=== PATIENT | male | born 1990 | race Caucasian/White ===

== ENCOUNTER 2018-06-01 02:15 | Emergency (ER) | payer SELFPAY ==
[~2018-06-01 02:15] MED LIST: AGM875T PO; BSP10T PO; CYCL10TA9 PO; DVL500TEC PO; HYDR-3720 PO; NAPR-1071 PO; PRD20T PO; TRM50T PO; seroquel
== END 2018-06-01 03:00 | disposition left against medical advice (07) ==
LOC: EDUNIT# 02:15 → ER 02:16
DX: R30.0 Dysuria (principal)

== ENCOUNTER 2020-02-08 09:17 | Emergency (ER) | payer SELFPAY ==
[~2020-02-08] VITALS: Ht 177.8 cm; Wt 77.0 kg
[2020-02-08] MEDS ORDERED: LACTATED RINGERS 1,000 ML IV ONE (09:25)
--- NOTE | 2020-02-08 09:29 | ED Chest Pain ---
General Stated Complaint: METH ABUSE Source: patient, EMS Exam Limitations: no limitations History of Present Illness Date Seen by Provider: Feb 08, 2020 Time Seen by Provider: 09:18 Initial Comments The patient presents to ER by EMS from home with chief complaint that he shot of something that he thought was met but is not certain what it was and then he had a bout 20 minutes of gripping type chest pain in the center of his chest. He's had no fevers chills cough shortness of breath or exposures to any sick people that he is aware of. He is a frequent IV methamphetamine user as well as smokes cannabis. He does drink alcohol and had a liter of whiskey yesterday between him and some friends. He denies any other significant medical history except for hepatitis. He does not follow with a doctor routinely. He does not take any routine medicines. No known personal or family history of coronary disease. He doesn't have any injection sites that he thinks are infected. EMS gave him 2 mg of Ativan IV because he was very agitated when they arrived. The said that has made a significant effect. Allergies and Home Medications Allergies Coded Allergies: PETERANo Known Allergies (Unverified Allergy, Mild, 11/28/08) Home Medications Buspirone Hcl 10 Mg Tablet, 10 MG PO TID, (Reported) Cyclobenzaprine HCl 10 Mg Tablet, 10 MG PO Q8H PRN for SPASMS Prescribed by: STORMY RASHID on 06/15/152201 Naproxen 500 Mg Tablet, 500 MG PO BID Prescribed by: STORMY RASHID on 06/15/152201 Prednisone 20 Mg Tab, 40 MG PO DAILY Prescribed by: STORMY RASHID on 06/15/152201 Patient Home Medication List Home Medication List Reviewed: Yes Review of Systems Review of Systems Constitutional: No chills, No diaphoresis EENTM: No Blurred Vision, No Double Vision Respiratory: Denies Cough, Denies Shortness of Air Cardiovascular: Chest Pain; Denies Edema, Denies Irregular Heart Rate, Denies Lightheadedness Gastrointestinal: Denies Constipated, Denies Diarrhea, Denies Nausea Genitourinary: Denies Burning, Denies Discharge, Denies Drainage Musculoskeletal: No back pain, No joint pain Skin: No dryness, No pruritus, No rash Psychiatric/Neurological: Denies Headache, Denies Numbness All Other Systems Reviewed Negative Unless Noted: Yes Past Zvceesj-Uyrhfb-Gqwmib Hx Patient Social History Alcohol Use: Regular Use Alcohol Beverage of Choice: Whiskey Recreational Drug Use: Yes Drug of Choice: IV methamphetamines Smoking Status: Current Everyday Smoker Type Used: Cigarettes (one pack per day) Seasonal Allergies Seasonal Allergies: No Past Medical History Reproductive Disorders: No Anxiety Family Medical History No Pertinent Family Hx Physical Exam Vital Signs Vital Signs - First Documented 02/08/20 09:20 Temp 37.5 Pulse 96 Resp 20 B/P (MAP) 136/95 (109) Pulse Ox 99 O2 Delivery Room Air Capillary Refill : Height, Weight, BMI Height: 5'10" Weight: 189lbs. oz. 85.198130ho; BMI Method:Stated General Appearance: Anxious, Other (disheveled) HEENT: PERRL/EOMI, TMs Normal, Normal ENT Inspection, Pharynx Normal, Moist Mucous Membranes Neck: Full Range of Motion, Normal Inspection Respiratory: Lungs Clear, Normal Breath Sounds, No Accessory Muscle Use, No Respiratory Distress Cardiovascular: Regular Rate, Rhythm, No Edema, Normal Peripheral Pulses Gastrointestinal: Normal Bowel Sounds, Non Tender, Soft Neurologic/Psychiatric: Alert, Oriented x3, No Motor/Sensory Deficits Skin: Warm/Dry, Other (copious IV insertion sites on bilateral arms. None appear erythematous, indurated tender or infected.) Progress/Results/Core Measures Results/Orders Lab Results Laboratory Tests Test 02/08/20 09:30 02/08/20 09:44 02/08/20 12:03 Range/Units White Blood Count 8.5 4.3-11.0 10^3/uL Red Blood Count 4.30 L 4.35-5.85 10^6/uL Hemoglobin 13.0 L 13.3-17.7 G/DL Hematocrit 38 L 40-54 % Mean Corpuscular Volume 88 80-99 FL Mean Corpuscular Hemoglobin 30 25-34 PG Mean Corpuscular Hemoglobin Concent 34 32-36 G/DL Red Cell Distribution Width 13.4 10.0-14.5 % Platelet Count 217 130-400 10^3/uL Mean Platelet Volume 10.8 H 7.4-10.4 FL Neutrophils (%) (Auto) 66 42-75 % Lymphocytes (%) (Auto) 23 12-44 % Monocytes (%) (Auto) 8 0-12 % Eosinophils (%) (Auto) 3 0-10 % Basophils (%) (Auto) 1 0-10 % Neutrophils # (Auto) 5.6 1.8-7.8 X 10^3 Lymphocytes # (Auto) 2.0 1.0-4.0 X 10^3 Monocytes # (Auto) 0.7 0.0-1.0 X 10^3 Eosinophils # (Auto) 0.2 0.0-0.3 10^3/uL Basophils # (Auto) 0.0 0.0-0.1 10^3/uL Sodium Level 139 135-145 MMOL/L Potassium Level 4.0 3.6-5.0 MMOL/L Chloride Level 108 H 98-107 MMOL/L Carbon Dioxide Level 18 L 21-32 MMOL/L Anion Gap 13 5-14 MMOL/L Blood Urea Nitrogen 11 7-18 MG/DL Creatinine 0.97 0.60-1.30 MG/DL Estimat Glomerular Filtration Rate > 60 BUN/Creatinine Ratio 11 Glucose Level 112 H 70-105 MG/DL Calcium Level 8.9 8.5-10.1 MG/DL Corrected Calcium 9.0 8.5-10.1 MG/DL Total Bilirubin 0.3 0.1-1.0 MG/DL Aspartate Amino Transf (AST/SGOT) 31 5-34 U/L Alanine Aminotransferase (ALT/SGPT) 34 0-55 U/L Alkaline Phosphatase 86 40-136 U/L Total Creatine Kinase 203 H 30-200 U/L Troponin I < 0.028 < 0.028 <0.028 NG/ML Total Protein 6.7 6.4-8.2 GM/DL Albumin 3.9 3.2-4.5 GM/DL Salicylates Level < 5.0 L 5.0-20.0 MG/DL Acetaminophen Level < 10 L 10-30 UG/ML Serum Alcohol < 10 <10 MG/DL Urine Color YELLOW Urine Clarity CLEAR Urine pH 6.5 5-9 Urine Specific [place] 1.025 H 1.016-1.022 Urine Protein 1+ H NEGATIVE Urine Glucose (UA) NEGATIVE NEGATIVE Urine Ketones TRACE H NEGATIVE Urine Nitrite NEGATIVE NEGATIVE Urine Bilirubin NEGATIVE NEGATIVE Urine Urobilinogen 1.0 < = 1.0 MG/DL Urine Leukocyte Esterase NEGATIVE NEGATIVE Urine RBC (Auto) NEGATIVE NEGATIVE Urine RBC RARE /HPF Urine WBC NONE /HPF Urine Squamous Epithelial Cells RARE /HPF Urine Crystals NONE /LPF Urine Bacteria NEGATIVE /HPF Urine Casts NONE /LPF Urine Mucus SMALL H /LPF Urine Other FEW SPERM H /HPF Urine Culture Indicated NO Urine Opiates Screen NEGATIVE NEGATIVE Urine Oxycodone Screen NEGATIVE NEGATIVE Urine Methadone Screen NEGATIVE NEGATIVE Urine Propoxyphene Screen NEGATIVE NEGATIVE Urine Barbiturates Screen NEGATIVE NEGATIVE Ur Tricyclic Antidepressants Screen NEGATIVE NEGATIVE Urine Phencyclidine Screen NEGATIVE NEGATIVE Urine Amphetamines Screen POSITIVE H NEGATIVE Urine Methamphetamines Screen POSITIVE H NEGATIVE Urine Benzodiazepines Screen NEGATIVE NEGATIVE Urine Cocaine Screen NEGATIVE NEGATIVE Urine Cannabinoids Screen POSITIVE H NEGATIVE My Orders Orders - SHRUTHI MCCOY Ed Iv/Invasive Line Start (02/08/20 09:25) Lactated Ringers (Lr 1000 Ml Iv Solution (02/08/20:25) Ua Culture If Indicated (02/08/20:25) Cbc With Automated Diff (02/08/20:25) Comprehensive Metabolic Panel (02/08/20:25) Alcohol (02/08/20:25) Drug Screen Stat (Urine) (02/08/20:25) Acetaminophen (02/08/20:25) Salicylate (02/08/20:25) Ekg Tracing (02/08/20:25) Ed Iv/Invasive Line Start (02/08/20:25) Monitor-Rhythm Ecg Trace Only (02/08/20:25) Ed Iv/Invasive Line Start (02/08/20:25) Creatine Kinase (02/08/20:25) Troponin I (02/08/20 09:25) Aspirin Chewable Tablet (Baby Aspirin Ch (02/08/20 09:30) Lorazepam Injection (Ativan Injection) (02/08/20 09:30) Chest 1 View, Ap/Pa Only (02/08/20 09:48) Blood Culture (02/08/20 09:48) Troponin I (02/08/20 11:30) Medications Given in ED Current Medications Medications Dose Ordered Sig/Carson Route Start Time Stop Time Status Last Admin Dose Admin Aspirin 324 mg ONCE ONCE PO 02/08/20 09:30 02/08/20 09:31 DC 02/08/20 09:43 324 MG Lactated Ringer's 1,000 ml @ 0 mls/hr Q0M ONCE IV 02/08/20 09:25 02/08/20 09:28 DC 02/08/20 10:20 0 MLS/HR Lorazepam 1 mg ONCE ONCE IVP 02/08/20 09:30 02/08/20 09:31 DC 02/08/20 09:44 1 MG Vital Signs/I&O 02/08/20 09:20 Temp 37.5 Pulse 96 Resp 20 B/P (MAP) 136/95 (109) Pulse Ox 99 O2 Delivery Room Air Progress Progress Note #1: Time: 10:44 Progress Note Patient's chest pain was transient and gone by the time he arrived in the ER. He was still quite anxious on arrival so another milligram of Ativan IV was ordered. He is now calm, his CPK is unremarkable. We put 2 L of fluid on board. Blood cultures have been obtained. Patient was mildly tachycardic around 100 when he arrived. EKG obtained. No fever or other signs of sepsis. No source of infection identified yet. Planned to obtain a repeat temperature. He presented with 99.5 which was initially attributed to his agitation and methamphetamine use. He denies any subjective symptoms of fever or chills. Progress Note #2: Time: 10:58 Progress Note The patient's much more calm. He has talked with his family on the cell phone. After discussing the case with instrument engineer the patient is not in any acute distress and has aseptic vital signs. We will do a delta troponin and if it is still negative and let him follow-up in the cardiology clinic outpatient in the next week. Initial ECG Impression Date: Feb 08, 2020 Initial ECG Impression Time: 09:23 Initial ECG Rate: 99 Initial ECG Rhythm: Normal Sinus Initial ECG Intervals: QT (488) Initial ECG Impression: Normal, Nonspecific Changes Comment Sinus rhythm with borderline prolonged QT interval. Some PVCs. No clinically relevant ST T-wave elevation or depression. Diagnostic Imaging Diagonstic Imaging: Xray Plain Films/CT/US/NM/MRI: chest (1v) Comments NAME: KRISTY WHALEY MED REC#: [id number] PT STATUS: REG ER : 1990 PHYSICIAN: SHRUTHI MCCOY MD ADMIT DATE: 02/08/20/ER Draft Date of Exam:02/08/20 CHEST 1 VIEW, AP/PA ONLY INDICATION: Methamphetamine abuse Frontal chest obtained at 1031 a.m. and compared to 06/15/2015. Heart and mediastinal silhouette are normal in appearance. Lungs are clear. There is no pneumothorax or pleural fluid. IMPRESSION: Negative chest. Dictated on workstation # [id number] Dict: 02/08/20 1032 Trans: 02/08/20 1034 ROSAURA [id number] Interpreted by: COLE VIERA MD Electronically signed by: Reviewed: Reviewed by Me Consults : Consulting Physician: Alessia HAQUE MD Consults Notes Discussed the case with Dr. Haque and he says at the delta troponin is still negative we could let him follow-up in the clinic. Departure Impression Primary Impression: Chest pain Qualified Codes: R07.9 - Chest pain, unspecified Additional Impression: Methamphetamine dependence, continuous Disposition: 01 HOME, SELF-CARE Condition: Improved Departure-Patient Inst. Decision time for Depature: 12:42 Referrals: [facility]/Alessia GORMAN MD NO,LOCAL PHYSICIAN (PCP) Primary Care Physician Patient Instructions: Drug Abuse and Drug Addiction (DC) Add. Discharge Instructions: Call Dr. Haque's clinic and request a follow-up appointment this week to discuss what might have caused your chest pain. It could've been from a vasospasm from something that you injected or something else. Return to the ER promptly if you develop fevers especially above 102.5, intractable chest pain, shortness of air or other worrisome symptom. If you want help getting off of methamphetamines you should talk to the team at [facility]. They have an outpatient drug addiction treatment program and would be willing to meet you. SHRUTHI MCCOY Feb 08, 2020 09:29
[2020-02-08] MEDS ORDERED: ASPIRIN 81 MG CHEW (CHILDREN'S ASA) PO ONE (09:30)
[2020-02-08] MEDS ORDERED: LORazepam INJ 2 MG/ML (ATIVAN) VIAL IVP ONE (09:30)
[2020-02-08 09:41] LABS: BASOPHILS % (AUTO) 1 % (0-10); EOSINOPHILS # (AUTO) 0.2 10^3/uL (0.0-0.3); EOSINOPHILS % (AUTO) 3 % (0-10); HEMATOCRIT 38 % (40-54); LYMPHOCYTES % (AUTO) 23 % (12-44); MEAN CORPUSCULAR HEMOGLOBIN 30 PG (25-34); MEAN CORPUSCULAR HGB CONC 34 G/DL (32-36); MEAN CORPUSCULAR VOLUME 88 FL (80-99); MEAN PLATELET VOLUME 10.8 FL (7.4-10.4); MONOCYTES # (AUTO) 0.7 X 10^3 (0.0-1.0); MONOCYTES % (AUTO) 8 % (0-12); NEUTROPHILS # (AUTO) 5.6 X 10^3 (1.8-7.8); NEUTROPHILS % (AUTO) 66 % (42-75); PLATELET COUNT 217 10^3/uL (130-400); RED CELL DISTRIBUTION WIDTH 13.4 % (10.0-14.5); WHITE BLOOD COUNT 8.5 10^3/uL (4.3-11.0)
[2020-02-08 10:00] LABS: ALANINE AMINOTRANSFERASE 34 U/L (0-55); ALBUMIN 3.9 GM/DL (3.2-4.5); ALKALINE PHOSPHATASE 86 U/L (40-136); BILIRUBIN,TOTAL 0.3 MG/DL (0.1-1.0); BUN/CREATININE RATIO 11; CALCIUM 8.9 MG/DL (8.5-10.1); CARBON DIOXIDE 18 MMOL/L (21-32); CHLORIDE 108 MMOL/L (98-107); CREATINE KINASE 203 U/L (30-200); CREATININE SERUM 0.97 MG/DL (0.60-1.30); GFR ESTIMATED > 60; GLUCOSE 112 MG/DL (70-105); SALICYLATE < 5.0 MG/DL (5.0-20.0); SODIUM 139 MMOL/L (135-145); TOTAL PROTEIN 6.7 GM/DL (6.4-8.2)
--- NOTE | 2020-02-08 10:02 | NUR ---
AFTER VERBAL AGREEMENT BY PT, PT MOTHER, KARYN WHALEY, UPDATED ON PT CONDITION ET PENDING TESTS. KARYN VOICES NO OTHER QUESTIONS OR CONERNS.
[2020-02-08 10:06] LABS: ACETAMINOPHEN < 10 UG/ML (10-30)
--- NOTE | 2020-02-08 10:15 | NUR ---
IV NS BOLUS INITIATED BY [facility] LENS GENERATING MACHINE TENDER, COMPLETE. 1000ML INTAKE.
[2020-02-08 10:26] LABS: BILIRUBIN,URINE NEGATIVE (NEGATIVE); CLARITY,URINE CLEAR; COLOR,URINE YELLOW; GLUCOSE, URINE (UA) NEGATIVE (NEGATIVE); KETONES,URINE TRACE (NEGATIVE); LEUKOCYTE ESTERASE ,URINE NEGATIVE (NEGATIVE); NITRITE,URINE NEGATIVE (NEGATIVE); PH,URINE 6.5 (5-9); PROTEIN,URINE 1+ (NEGATIVE)
--- NOTE | 2020-02-08 10:34 | Diagnostic Imaging Report ---
INDICATION: Methamphetamine abuse Frontal chest obtained at 1031 a.m. and compared to 06/15/2015. Heart and mediastinal silhouette are normal in appearance. Lungs are clear. There is no pneumothorax or pleural fluid. IMPRESSION: Negative chest. Dictated by: Dictated on workstation # [id number]
[2020-02-08 10:41] LABS: BACTERIA,URINE NEGATIVE /HPF; RBC,URINE RARE /HPF; SQUAMOUS EPITHELIAL CELL,UR RARE /HPF
[2020-02-08 10:42] LABS: URINE OTHER FEW SPERM /HPF
[2020-02-08 10:51] LABS: AMPHETAMINE SCREEN, URINE POSITIVE (NEGATIVE); BARBITURATE SCREEN URINE NEGATIVE (NEGATIVE); BENZODIAZEPINES SCREEN URINE NEGATIVE (NEGATIVE); CANNABINOID SCREEN, URINE POSITIVE (NEGATIVE); COCAINE SCREEN URINE NEGATIVE (NEGATIVE); METHADONE STAT NEGATIVE (NEGATIVE); METHAMPHETAMINE SCREEN URINE S POSITIVE (NEGATIVE); OPIATE SCREEN URINE NEGATIVE (NEGATIVE); OXYCODONE STAT NEGATIVE (NEGATIVE); PROPOXYPHENE STAT NEGATIVE (NEGATIVE); TRICYCLIC ANTIDEPRESSANTS SCRE NEGATIVE (NEGATIVE)
[2020-02-08 12:50] VITALS: BP 149/73
== END 2020-02-08 12:51 | disposition home or self-care (01) ==
LOC: EDUNIT# 09:17 → ER 09:19
DX: R07.89 Other chest pain (principal); F15.20 Other stimulant dependence, uncomplicated; F41.9 Anxiety disorder, unspecified; F17.210 Nicotine dependence, cigarettes, uncomplicated; Z79.52 Long term (current) use of systemic steroids
CPT/HCPCS: 71045; 80053; 80306; 81000; 82550; 84484; 85025; 87040; 93005; 93041; 99284; G0480 ×3; 36415; 80320; 80329

== ENCOUNTER 2020-04-18 08:54 | Emergency (ER) | payer SELFPAY ==
[~2020-04-18] VITALS: Ht 167.4 cm; Wt 74.5 kg
[2020-04-18] MEDS ORDERED: LACTATED RINGERS 1,000 ML IV ONE (09:04)
[2020-04-18] MEDS ORDERED: FAMOTIDINE 20MG/2ML IV (PEPCID) IV STA (09:04)
[2020-04-18 09:15] LABS: BASOPHILS % (AUTO) 0 % (0-10); EOSINOPHILS # (AUTO) 0.2 10^3/uL (0.0-0.3); EOSINOPHILS % (AUTO) 2 % (0-10); HEMATOCRIT 44 % (40-54); HEMOGLOBIN 14.7 G/DL (13.3-17.7); LYMPHOCYTES # (AUTO) 1.7 X 10^3 (1.0-4.0); LYMPHOCYTES % (AUTO) 14 % (12-44); MEAN CORPUSCULAR HEMOGLOBIN 30 PG (25-34); MEAN CORPUSCULAR HGB CONC 34 G/DL (32-36); MEAN CORPUSCULAR VOLUME 91 FL (80-99); MEAN PLATELET VOLUME 10.8 FL (7.4-10.4); MONOCYTES # (AUTO) 0.7 X 10^3 (0.0-1.0); MONOCYTES % (AUTO) 6 % (0-12); NEUTROPHILS # (AUTO) 9.2 X 10^3 (1.8-7.8); NEUTROPHILS % (AUTO) 78 % (42-75); PLATELET COUNT 231 10^3/uL (130-400); RED CELL DISTRIBUTION WIDTH 13.7 % (10.0-14.5); WHITE BLOOD COUNT 11.8 10^3/uL (4.3-11.0)
[2020-04-18] MEDS ORDERED: LIDOCAINE 2% VISCOUS 15 ML UDC PO ONE (09:15)
[2020-04-18] MEDS ORDERED: ASPIRIN 81 MG CHEW (CHILDREN'S ASA) PO ONE (09:15)
[2020-04-18] MEDS ORDERED: ANTACID SUSP 30 ML UDC (MYLANTA) PO ONE (09:15)
[2020-04-18] MEDS ORDERED: LORazepam INJ 2 MG/ML (ATIVAN) VIAL IVP ONE (09:15)
--- NOTE | 2020-04-18 09:16 | ED Chest Pain ---
General Stated Complaint: CHEST TIGHTNESS Source: patient Exam Limitations: no limitations History of Present Illness Date Seen by Provider: Apr 18, 2020 Time Seen by Provider: 08:51 Initial Comments The patient resents to ER by private conveyance from home with chief complaint that he started having some chest pain since 7:00 this morning, 2 hours prior to arrival. He says he used methamphetamine yesterday. For the past year he's having intermittent chest pains like this is not always associated with his use of methadone amphetamines. He does not use other stimulants. He does use cannabis and smokes cigarettes and occasionally drinks. He was post to follow-up with cardiology of for the last time he presented to the ER with this symptom but they required him to have an ID and he does not have one so he never made an appointment. The patient says his father had his first heart attack and stent at age 40. He does not follow with a primary care doctor and have any other known medical history. He says the pain is sharp stabbing in his left chest reading to his left shoulder. He is not short of breath having cough fever chills nausea vomiting sweats diarrhea. He says last time he came to the ER for this they gave him a shot of something for his pain and let him follow-up outpatient. Allergies and Home Medications Allergies Coded Allergies: NKANo Known Allergies (Unverified Allergy, Mild, 11/28/08) Home Medications Buspirone Hcl 10 Mg Tablet, 10 MG PO TID, (Reported) Cyclobenzaprine HCl 10 Mg Tablet, 10 MG PO Q8H PRN for SPASMS Prescribed by: STORMY RASHID on 06/15/152201 Naproxen 500 Mg Tablet, 500 MG PO BID Prescribed by: STORMY RASHID on 06/15/152201 Prednisone 20 Mg Tab, 40 MG PO DAILY Prescribed by: STORMY RASHID on 06/15/152201 Patient Home Medication List Home Medication List Reviewed: Yes Review of Systems Review of Systems Constitutional: No chills, No diaphoresis EENTM: No Blurred Vision, No Double Vision Respiratory: Denies Cough, Denies Shortness of Air, Denies SOA With Exertion Cardiovascular: See HPI, Chest Pain; Denies Edema, Denies Lightheadedness, Denies Palpitations, Denies Syncope Gastrointestinal: Denies Abdomen Distended, Denies Abdominal Pain, Denies Constipated, Denies Diarrhea, Denies Nausea Genitourinary: Denies Burning, Denies Discharge Musculoskeletal: No back pain, No gout, No joint pain Skin: No pruritus, No rash Psychiatric/Neurological: Denies Headache, Denies Numbness All Other Systems Reviewed Negative Unless Noted: Yes Past Wtpfbiz-Orxswg-Jlbtuq Hx Patient Social History Alcohol Use: Denies Use Alcohol Beverage of Choice: Whiskey Recreational Drug Use: Yes Drug of Choice: IV methamphetamines Smoking Status: Current Everyday Smoker Type Used: Cigarettes 2nd Hand Smoke Exposure: Yes Recent Foreign Travel: No Contact w/Someone Who Travel: No Recent Hopitalizations: No Seasonal Allergies Seasonal Allergies: No Past Medical History Surgeries: Yes (jaw) Respiratory: No Cardiac: No Neurological: No Reproductive Disorders: No Gastrointestinal: No Musculoskeletal: No Endocrine: No HEENT: No Cancer: No Psychosocial: Yes Anxiety Integumentary: No Blood Disorders: No (HEP C+) Family Medical History No Pertinent Family Hx Physical Exam Vital Signs Vital Signs - First Documented 04/18/20 08:57 Temp 36.7 Pulse 105 Resp 18 B/P (MAP) 177/100 (125) Pulse Ox 98 O2 Delivery Room Air Capillary Refill : Height, Weight, BMI Height: 5'10" Weight: 189lbs. oz. 85.464974lr; 24.00 BMI Method:Stated General Appearance: Anxious, Moderate Distress HEENT: PERRL/EOMI, Pharynx Normal, Moist Mucous Membranes Neck: Full Range of Motion, Normal Inspection Respiratory: Lungs Clear, Normal Breath Sounds, No Accessory Muscle Use, No Respiratory Distress Cardiovascular: Regular Rate, Rhythm, No Edema, Normal Peripheral Pulses, Tachycardia Gastrointestinal: Normal Bowel Sounds, Non Tender, Soft Extremity: Normal Capillary Refill, Normal Inspection, Normal Range of Motion, Non Tender Neurologic/Psychiatric: Alert, Oriented x3, No Motor/Sensory Deficits Skin: Normal Color, Warm/Dry Progress/Results/Core Measures Results/Orders Lab Results Laboratory Tests Test 04/18/20 09:08 04/18/20 10:57 Range/Units White Blood Count 11.8 H 4.3-11.0 10^3/uL Red Blood Count 4.84 4.35-5.85 10^6/uL Hemoglobin 14.7 13.3-17.7 G/DL Hematocrit 44 40-54 % Mean Corpuscular Volume 91 80-99 FL Mean Corpuscular Hemoglobin 30 25-34 PG Mean Corpuscular Hemoglobin Concent 34 32-36 G/DL Red Cell Distribution Width 13.7 10.0-14.5 % Platelet Count 231 130-400 10^3/uL Mean Platelet Volume 10.8 H 7.4-10.4 FL Neutrophils (%) (Auto) 78 H 42-75 % Lymphocytes (%) (Auto) 14 12-44 % Monocytes (%) (Auto) 6 0-12 % Eosinophils (%) (Auto) 2 0-10 % Basophils (%) (Auto) 0 0-10 % Neutrophils # (Auto) 9.2 H 1.8-7.8 X 10^3 Lymphocytes # (Auto) 1.7 1.0-4.0 X 10^3 Monocytes # (Auto) 0.7 0.0-1.0 X 10^3 Eosinophils # (Auto) 0.2 0.0-0.3 10^3/uL Basophils # (Auto) 0.0 0.0-0.1 10^3/uL Prothrombin Time 12.7 12.2-14.7 SEC INR Comment 0.9 0.8-1.4 Activated Partial Thromboplast Time 26 24-35 SEC Sodium Level 137 135-145 MMOL/L Potassium Level 3.8 3.6-5.0 MMOL/L Chloride Level 102 98-107 MMOL/L Carbon Dioxide Level 23 21-32 MMOL/L Anion Gap 12 5-14 MMOL/L Blood Urea Nitrogen 14 7-18 MG/DL Creatinine 0.93 0.60-1.30 MG/DL Estimat Glomerular Filtration Rate > 60 BUN/Creatinine Ratio 15 Glucose Level 132 H 70-105 MG/DL Calcium Level 9.2 8.5-10.1 MG/DL Corrected Calcium 8.9 8.5-10.1 MG/DL Magnesium Level 1.7 1.6-2.4 MG/DL Total Bilirubin 0.4 0.1-1.0 MG/DL Aspartate Amino Transf (AST/SGOT) 31 5-34 U/L Alanine Aminotransferase (ALT/SGPT) 74 H 0-55 U/L Alkaline Phosphatase 100 40-136 U/L Myoglobin 20.5 10.0-92.0 NG/ML Troponin I < 0.028 < 0.028 <0.028 NG/ML Total Protein 7.7 6.4-8.2 GM/DL Albumin 4.4 3.2-4.5 GM/DL My Orders Orders - SHRUTHI MCCOY Continuous Ekg Monitoring (04/18/20 08:57) Ekg Tracing (04/18/20 08:57) Ed Iv/Invasive Line Start (04/18/20 09:04) Lactated Ringers (Lr 1000 Ml Iv Solution (04/18/20 09:04) Cbc With Automated Diff (04/18/20 09:04) Magnesium (04/18/20 09:04) Chest 1 View, Ap/Pa Only (04/18/20 09:04) Comprehensive Metabolic Panel (04/18/20 09:04) Myoglobin Serum (04/18/20 09:04) Protime With Inr (04/18/20 09:04) Partial Thromboplastin Time (04/18/20 09:04) O2 (04/18/20 09:04) Lipid Panel (04/19/20 06:00) Ed Iv/Invasive Line Start (04/18/20 09:04) Troponin I (04/18/20 09:04) Aspirin Chewable Tablet (Baby Aspirin Ch (04/18/20 09:15) Lorazepam Injection (Ativan Injection) (04/18/20 09:15) Lidocaine 2% Viscous 15 Ml (Xylocaine Vi (04/18/20 09:15) Antacid Suspension (Mylanta Suspension (04/18/20 09:15) Famotidine Injection (Pepcid Injection) (04/18/20 09:04) Troponin I (04/18/20 11:03) Medications Given in ED Current Medications Medications Dose Ordered Sig/Carson Route Start Time Stop Time Status Last Admin Dose Admin Al Hydrox/Mg Hydrox/Simethicone 30 ml ONCE ONCE PO 04/18/20 09:15 04/18/20 09:16 DC 04/18/20 09:19 30 ML Aspirin 324 mg ONCE ONCE PO 04/18/20 09:15 04/18/20 09:16 DC 04/18/20 09:19 324 MG Lactated Ringer's 1,000 ml @ 0 mls/hr Q0M ONCE IV 04/18/20 09:04 04/18/20 09:07 DC 8/24/20 09:23 1,000 MLS/HR Lidocaine HCl 15 ml ONCE ONCE PO 04/18/20 09:15 04/18/20 09:16 DC 04/18/20 09:19 15 ML Lorazepam 2 mg ONCE ONCE IVP 04/18/20 09:15 04/18/20 09:16 DC 04/18/20 09:21 2 MG Vital Signs/I&O 04/18/20 08:57 Temp 36.7 Pulse 105 Resp 18 B/P (MAP) 177/100 (125) Pulse Ox 98 O2 Delivery Room Air Progress Progress Note #1: Time: 09:16 Progress Note Initial EKG is okay. He could be having a type do an STEMI related to stimulant use. He also be having musculoskeletal pain as it is reproducible to direct palpation of his chest. We'll give him a GI cocktail to help us decide whether gastritis or esophagitis is part of the problem. We will also give him 2 mg Ativan as she is tachycardic, anxious and a liter of fluids. Progress Note #2: Time: 11:02 Progress Note the patient expressed significant improvement from the GI cocktail. His initial troponin is negative which was collected 2 hours after the initiation of his pain. It is now 4 hours after his pain started and has resolved. If a delta troponin is negative were going to allow him to go home and strongly encouraged to follow up with cardiology. He says hd can help him get an ID. We havcouraged him also to start taking omeprazole and if the baker bread workup is completed he should follow-up with a doctor to discuss his stomach issues. We also encouraged him to discontinue smoking and stop using methamphetamines. The patient is pre-contemplative at this time. We did encourage him to follow [facility] with [facility] as they do have some capability for outpatient drug and alcohol addiction treatment if he changes his mind and the patient acknowledges this. Initial ECG Impression Date: Apr 18, 2020 Initial ECG Impression Time: 09:00 Initial ECG Rate: 100 Initial ECG Rhythm: S.Tach Initial ECG Intervals: Normal Initial ECG Impression: Normal, Nonspecific Changes Initial ECG Comparisson: Unchanged Comment Sinus tachycardia with no clinically relevant ST elevation or depression. PVC seen. Diagnostic Imaging Diagonstic Imaging: Xray Plain Films/CT/US/NM/MRI: chest Comments NAME: KRISTY WHALEY [facility] REC#: [id number] PT STATUS: REG ER : 1990 PHYSICIAN: SHRUTHI MCCOY MD ADMIT DATE: 04/18/20/ER Draft Date of Exam:04/18/20 CHEST 1 VIEW, AP/PA ONLY INDICATION: Chest pain and tightness. Frontal chest obtained at 9:27 a.m. is compared to 02/08/2020. Heart and mediastinal silhouette are normal in appearance. The lungs are clear. There is no pneumothorax or pleural fluid. IMPRESSION: Negative chest. Dictated on workstation # [id number] Dict: 04/18/20 0950 Trans: 04/18/20 0951 [id number] [id number] Interpreted by: COLE VIERA MD Electronically signed by: Reviewed: Reviewed by Me Departure Impression Primary Impression: Chest wall pain Additional Impression: Gastroesophageal reflux disease Qualified Codes: K21.9 - Gastro-esophageal reflux disease without esophagitis Disposition: HOME, SELF-CARE Condition: Stable Departure-Patient Inst. Decision time for Depature: 12:09 Referrals: JARON ALVARADO MD FACP FACC [facility] NO,LOCAL PHYSICIAN (PCP) Primary Care Physician Patient Instructions: Chest Pain (DC) Add. Discharge Instructions: I suspect that some your chest pain may be caused by a GERD or indigestion however with her use of methamphetamines, history of smoking and history of early-onset family heart diseaseyou have significant risk factors and I recommend you follow-up with the baker bread in the clinic. Please call Dr. Alvarado, cardiology and make an appointment within the next week or 2 for follow-up. Start taking omeprazole/Prilosec 40 mg daily for the next 30 days. Start taking the Carafate 30 minutes prior to meals and at bedtime for a total of 4 times a day. Do this for the next 2 weeks. you can try Rolaids, Tums, Maalox etc. for pain. If this does not help and your pain persists then please return to the nearest ER promptly. Scripts Sucralfate (Carafate) 1 Gm Tablet 1 GM PO QIDACHS for 14 Days, #56 TAB 0 Refills Prov: SHRUTHI MCCOY 04/18/20 Omeprazole (Omeprazole) 40 Mg Capsule. 40 MG PO DAILY for 30 Days, #30 CAP 0 Refills Prov: SHRUTHI MCCOY 04/18/20 SHRUTHI MCCOY Apr 18, 2020 09:16
[2020-04-18 09:32] LABS: INR 0.9 (0.8-1.4); PROTHROMBIN TIME PATIENT 12.7 SEC (12.2-14.7)
[2020-04-18 09:50] LABS: ALANINE AMINOTRANSFERASE 74 U/L (0-55); ALBUMIN 4.4 GM/DL (3.2-4.5); ALKALINE PHOSPHATASE 100 U/L (40-136); BILIRUBIN,TOTAL 0.4 MG/DL (0.1-1.0); BUN/CREATININE RATIO 15; CALCIUM 9.2 MG/DL (8.5-10.1); CARBON DIOXIDE 23 MMOL/L (21-32); CHLORIDE 102 MMOL/L (98-107); CREATININE SERUM 0.93 MG/DL (0.60-1.30); GFR ESTIMATED > 60; GLUCOSE 132 MG/DL (70-105); MAGNESIUM 1.7 MG/DL (1.6-2.4); POTASSIUM 3.8 MMOL/L (3.6-5.0); SODIUM 137 MMOL/L (135-145); TOTAL PROTEIN 7.7 GM/DL (6.4-8.2)
--- NOTE | 2020-04-18 09:52 | Diagnostic Imaging Report ---
INDICATION: Chest pain and tightness. Frontal chest obtained at 9:27 a.m. is compared to 02/08/2020. Heart and mediastinal silhouette are normal in appearance. The lungs are clear. There is no pneumothorax or pleural fluid. IMPRESSION: Negative chest. Dictated by: Dictated on workstation # [id number]
--- NOTE | 2020-04-18 10:00 | NUR ---
FEELING BETTER. FLUIDS INFUSING.
[2020-04-18] MEDS ORDERED: SUCR1TAB36 PO (12:12)
[2020-04-18] MEDS ORDERED: OMEP40CA27 PO (12:12)
[2020-04-18 12:21] VITALS: BP 125/81
== END 2020-04-18 12:19 | disposition home or self-care (01) ==
LOC: EDUNIT# 08:54 → ER 08:55
DX: R07.89 Other chest pain (principal); K21.9 Gastro-esophageal reflux disease without esophagitis; F41.9 Anxiety disorder, unspecified; F17.210 Nicotine dependence, cigarettes, uncomplicated; Z79.52 Long term (current) use of systemic steroids
CPT/HCPCS: 36415; 71045; 80053; 83735; 83874; 84484; 85025; 85610; 85730; 93005

== ENCOUNTER 2020-05-04 15:04 | Emergency (ER) | payer SELFPAY ==
[~2020-05-04] VITALS: Ht 160 cm; Wt 72.7 kg
[~2020-05-04 15:04] MED LIST changes: +OMEP40CA27 PO; +SUCR1TAB36 PO
[2020-05-04 15:13] VITALS: BP 143/90
[2020-05-04] MEDS ORDERED: cefTRIAXone 1,000 MG/2.86 ml vial (IM ONLY) IM SCH (15:45)
[2020-05-04] MEDS ORDERED: LIDOCAINE 1% INJ 20 ML 20 ML VIAL INJ ONE (15:45)
[2020-05-04] MEDS ORDERED: AMOX-358 PO (15:47)
--- NOTE | 2020-05-04 15:47 | ED General ---
General Chief Complaint: General Problems/Pain Stated Complaint: FACIAL SWELLING;FACIAL PAIN Nursing Triage Note: AMBA TO ED C/O SWELLING TO R SIDE OF FACE AND SWELLING UNDER R EYE FOR SEVERAL DAYS. Nursing Sepsis Screen: No Definite Risk Source of Information: Patient Exam Limitations: No Limitations History of Present Illness Date Seen by Provider: May 04, 2020 Time Seen by Provider: 15:42 Initial Comments 29-year-old male who presents to the emergency room with complaints of right upper dental pain, facial swelling that extends down to the right eye for the past several days. Patient has numerous caries and fractured teeth. He reports that he gets abscesses from time to time. He denies fever or drainage into the oral cavity. Timing/Duration: 1 Week Associated Systoms: No Fever/Chills Allergies and Home Medications Allergies Coded Allergies: NKANo Known Allergies (Unverified Allergy, Mild, 11/28/08) Home Medications Buspirone Hcl 10 Mg Tablet, 10 MG PO TID, (Reported) Cyclobenzaprine HCl 10 Mg Tablet, 10 MG PO Q8H PRN for SPASMS Prescribed by: STORMY RASHID on 06/15/152201 Naproxen 500 Mg Tablet, 500 MG PO BID Prescribed by: STORMY RASHID on 06/15/152201 Omeprazole 40 Mg Capsule.dr, 40 MG PO DAILY Prescribed by: SHRUTHI MCCOY on 04/18/201211 Prednisone 20 Mg Tab, 40 MG PO DAILY Prescribed by: STORMY RASHID on 06/15/152201 Sucralfate 1 Gm Tablet, 1 GM PO QIDACHS Prescribed by: SHRUTHI MCCOY on 04/18/201211 Patient Home Medication List Home Medication List Reviewed: Yes Review of Systems Review of Systems Constitutional: see HPI; No chills, No fever EENTM: see HPI, mouth pain, mouth swelling, other (right upper cheek swelling that extends to the lower lid of the right eye) All Other Systems Reviewed Negative Unless Noted: Yes Past Zvqwoqm-Hlpwqu-Kpmuxd Hx Past Med/Social Hx: Reviewed Nursing Past Med/Soc Hx Patient Social History Alcohol Use: Denies Use Number of Drinks Today: GG Alcohol Beverage of Choice: Whiskey Recreational Drug Use: Yes (THC IV METHAMPHETAMINES ) Drug of Choice: IV methamphetamines Smoking Status: Current Everyday Smoker Type Used: Cigarettes 2nd Hand Smoke Exposure: Yes Recent Foreign Travel: No Contact w/Someone Who Travel: No Recent Infectious Disease Expo: No Recent Hopitalizations: No Seasonal Allergies Seasonal Allergies: No Past Medical History Surgeries: Yes (jaw) Respiratory: No Cardiac: No Neurological: No Reproductive Disorders: No Gastrointestinal: No Musculoskeletal: No Endocrine: No HEENT: No Cancer: No Psychosocial: Yes Anxiety Integumentary: No Blood Disorders: No (HEP C+) Family Medical History Reviewed Nursing Family Hx No Pertinent Family Hx Physical Exam Vital Signs Vital Signs - First Documented 05/04/20 15:13 Temp 37.0 Pulse 76 Resp 18 B/P (MAP) 143/90 (107) Pulse Ox 99 Capillary Refill : Less Than 3 Seconds Height, Weight, BMI Height: 5'10" Weight: 189lbs. oz. 85.029980ho; 28.00 BMI Method:Stated General Appearance: No Apparent Distress, WD/WN Eyes: Bilateral Eye Normal Inspection, Bilateral Eye PERRL, Bilateral Eye EOMI, Bilateral Eye Other (right lower lid swelling) HEENT: PERRL/EOMI, TMs Normal, Normal ENT Inspection, Pharynx Normal, Other (numerous dental caries and fractured teeth. No area of drainage or fistula noted.) Respiratory: Chest Non Tender, Lungs Clear, Normal Breath Sounds, No Accessory Muscle Use, No Respiratory Distress Cardiovascular: Regular Rate, Rhythm, No Edema, No Gallop, No JVD, No Murmur, Normal Peripheral Pulses Neurologic/Psychiatric: Alert, Oriented x3, Normal Mood/Affect Skin: Normal Color, Warm/Dry Progress/Results/Core Measures Suspected Sepsis Recent Fever Within 48 Hours: No Infection Criteria Present: None New/Unexplained Altered Menta: No Sepsis Screen: No Definite Risk SIRS Temperature: Pulse: 76 Respiratory Rate: 18 Blood Pressure 143 /90 Mean: 107 Results/Orders Vital Signs/I&O 05/04/20 15:13 Temp 37.0 Pulse 76 Resp 18 B/P (MAP) 143/90 (107) Pulse Ox 99 Capillary Refill : Less Than 3 Seconds Blood Pressure Mean: 107 Departure Impression Primary Impression: Dental infection Disposition: 01 HOME, SELF-CARE Condition: Stable/Unchanged Departure-Patient Inst. Decision time for Depature: 15:46 Referrals: YAZAN FOX,LOCAL PHYSICIAN (PCP) Primary Care Physician Patient Instructions: Tooth Abscess (DC) Add. Discharge Instructions: Take medications as directed. Follow-up with your primary care provider of your choosing within 1 week. You also need to follow-up with a dental clinic of your choosing. You may use ibuprofen and Tylenol as needed for pain relief. All discharge instructions reviewed with patient and/or family. Voiced understanding. Scripts Amoxicillin/Potassium Clav (Augmentin 875-125 Tablet) 1 Each Tablet 1 EACH PO BID for 10 Days, #20 TAB 0 Refills Prov: ABEBA THEODORE 05/04/20 ABEBA THEODORE May 04, 2020 15:47
== END 2020-05-04 16:20 | disposition home or self-care (01) ==
LOC: EDUNIT# 15:04 → ER 15:06
DX: K04.7 Periapical abscess without sinus (principal); F17.210 Nicotine dependence, cigarettes, uncomplicated; F41.9 Anxiety disorder, unspecified; Z79.52 Long term (current) use of systemic steroids
CPT/HCPCS: 99284

== ENCOUNTER 2020-11-22 21:57 | Emergency (ER) | payer SELFPAY ==
[~2020-11-22 21:57] MED LIST changes: +AMOX-358 PO
== END 2020-11-22 23:07 | disposition left against medical advice (07) ==
LOC: EDUNIT# 21:57 → ER 21:58
DX: F15.90 Other stimulant use, unspecified, uncomplicated (principal)

== ENCOUNTER 2021-01-14 03:56 | Emergency (ER) | payer SELFPAY ==
[~2021-01-14] VITALS: Ht 177.8 cm; Wt 76.2 kg
[2021-01-14] MEDS ORDERED: ASPIRIN 81 MG CHEW (CHILDREN'S ASA) PO ONE (04:30)
[2021-01-14] MEDS ORDERED: LACTATED RINGERS 1,000 ML IV ONE (04:30)
--- NOTE | 2021-01-14 04:36 | ED Chest Pain ---
General Stated Complaint: HEART PALPITATIONS,SMOKED SUBSTANCE DOESN'T FEEL R Source: patient Exam Limitations: no limitations (HEATHER MORAN STUDENT) History of Present Illness Date Seen by Provider: January 14, 2021 Time Seen by Provider: 04:15 Initial Comments Pt presents to ED via private conveyance with complaints of chest pressure and lightheadedness. He states it began about an hour before arriving after he smoked methamphetamine, and complains of 3/10 pain/pressure to his mid-left anterior chest. He experienced a similar episode 3-4mos ago, again after smoking methamphetamine. He states that he is currently a daily meth smoker. He has a significant family history of cardiac disease, with his father passing at age 46 from [place]. He denies history of diabetes, high blood pressure, hyperlipidemia. He takes Buspirone and Zyprexa. He also complains of lightheadedness, but denies N/V and abd pain. Timing/Duration: 1-3 hours Severity/Quality: moderate, pressure Location: central Activities at Onset: other (smoking methamphetamine) Prior CP/Workup: other (prior incident of similar nature 3-4mos ago) Associated Symptoms: No abdominal pain, No fever/chills, No headache, No nausea/vomiting, No shortness of breath (HEATHER MORAN STUDENT) Allergies and Home Medications Allergies Coded Allergies: PETERANo Known Allergies (Unverified Allergy, Mild, 11/28/08) Home Medications Amoxicillin/Potassium Clav 1 Each Tablet, 1 EACH PO BID Prescribed by: ABEBA THEODORE on 05/04/20 1547 Buspirone Hcl 10 Mg Tablet, 10 MG PO TID, (Reported) Cyclobenzaprine HCl 10 Mg Tablet, 10 MG PO Q8H PRN for SPASMS Prescribed by: STORMY RASHID on 06/15/152201 Naproxen 500 Mg Tablet, 500 MG PO BID Prescribed by: STORMY RASHID on 06/15/152201 Omeprazole 40 Mg Capsule.dr, 40 MG PO DAILY Prescribed by: SHRUTHI RADFORD on 04/18/201211 Prednisone 20 Mg Tab, 40 MG PO DAILY Prescribed by: STORMY RASHID on 06/15/152201 Sucralfate 1 Gm Tablet, 1 GM PO QIDACHS Prescribed by: SHRUTHI RADFORD on 8/24/20 1212 Patient Home Medication List Home Medication List Reviewed: Yes (HEATHER MORAN) Home Medication List Reviewed: Yes (SHRUTHI RADFORD) Review of Systems Review of Systems Constitutional: No chills, No fever EENTM: No Eye Pain, No Ear Pain Respiratory: Denies Cough, Denies Shortness of Air Cardiovascular: Chest Pain; Denies Edema; Irregular Heart Rate (occasional PVC's), Lightheadedness, Palpitations Gastrointestinal: Denies Abdomen Distended, Denies Abdominal Pain, Denies Constipated, Denies Diarrhea, Denies Nausea, Denies Vomiting Genitourinary: Denies Frequency, Denies Hematuria Musculoskeletal: No back pain, No joint pain, No muscle pain Skin: No change in color, No rash Psychiatric/Neurological: Denies Headache, Denies Numbness, Denies Paresthesia, Denies Tingling (HEATHER MORAN) All Other Systems Reviewed Negative Unless Noted: Yes (HEATHER MORAN) Past Bhepshb-Yxtbcp-Jvaxcc Hx Past Med/Social Hx: Reviewed Nursing Past Med/Soc Hx (HEATHER MORAN) Patient Social History Alcohol Beverage of Choice: Whiskey Drug of Choice: IV methamphetamines Type Used: Cigarettes 2nd Hand Smoke Exposure: Yes Recent Hopitalizations: No Substance type: Amphetamines (HEATHER MORAN) Seasonal Allergies Seasonal Allergies: No (HEATHER MORAN) Past Medical History Surgeries: Yes (jaw) Respiratory: No Cardiac: No Neurological: No Reproductive Disorders: No Gastrointestinal: No Musculoskeletal: No Endocrine: No HEENT: No Cancer: No Psychosocial: Yes Anxiety Integumentary: No Blood Disorders: No (HEP C+) (HEATHER MORAN) Family Medical History No Pertinent Family Hx (HEATHER MORAN) Physical Exam Vital Signs Vital Signs - First Documented (SHRUTHI RADFORD) Vital Signs Capillary Refill : (HEATHER MORAN STUDENT) Height, Weight, BMI Height: 5'10" Weight: 189lbs. oz. 85.748985vx; 28.00 BMI Method:Stated General Appearance: WD/WN, Anxious, Mild Distress HEENT: PERRL/EOMI, Normal ENT Inspection Neck: Full Range of Motion, Normal Inspection, Non Tender, Supple Respiratory: Chest Non Tender, Lungs Clear, Normal Breath Sounds, No Accessory Muscle Use, No Respiratory Distress Cardiovascular: No Edema, No Murmur, Normal Peripheral Pulses, Tachycardia (frequent PVC's, rate 100's) Gastrointestinal: Normal Bowel Sounds, Non Tender, Soft; No Distended, No Guarding Rectal: Deferred Extremity: Normal Capillary Refill, Normal Inspection, Normal Range of Motion, Non Tender, No Pedal Edema Neurologic/Psychiatric: Alert, Oriented x3, No Motor/Sensory Deficits, Other (agitated/excitable affect) Skin: Normal Color, Diaphoresis Lymphatic: No Adenopathy (HEATHER MORAN MED STUDENT) Progress/Results/Core Measures Results/Orders Lab Results Laboratory Tests Test 01/14/21 04:35 01/14/21 04:43 Range/Units White Blood Count 11.1 H 4.3-11.0 10^3/uL Red Blood Count 5.37 4.30-5.52 10^6/uL Hemoglobin 15.8 13.3-17.7 g/dL Hematocrit 48 40-54 % Mean Corpuscular Volume 89 80-99 fL Mean Corpuscular Hemoglobin 29 25-34 pg Mean Corpuscular Hemoglobin Concent 33 32-36 g/dL Red Cell Distribution Width 13.1 10.0-14.5 % Platelet Count 249 130-400 10^3/uL Mean Platelet Volume 10.8 9.0-12.2 fL Immature Granulocyte % (Auto) 0 % Neutrophils (%) (Auto) 74 42-75 % Lymphocytes (%) (Auto) 18 12-44 % Monocytes (%) (Auto) 6 0-12 % Eosinophils (%) (Auto) 1 0-10 % Basophils (%) (Auto) 1 0-10 % Neutrophils # (Auto) 8.2 H 1.8-7.8 10^3/uL Lymphocytes # (Auto) 2.0 1.0-4.0 10^3/uL Monocytes # (Auto) 0.7 0.0-1.0 10^3/uL Eosinophils # (Auto) 0.2 0.0-0.3 10^3/uL Basophils # (Auto) 0.1 0.0-0.1 10^3/uL Immature Granulocyte # (Auto) 0.0 0.0-0.1 10^3/uL Prothrombin Time 13.2 12.2-14.7 SEC INR Comment 1.0 0.8-1.4 Activated Partial Thromboplast Time 29 24-35 SEC Sodium Level 139 135-145 MMOL/L Potassium Level 3.9 3.6-5.0 MMOL/L Chloride Level 103 98-107 MMOL/L Carbon Dioxide Level 24 21-32 MMOL/L Anion Gap 12 5-14 MMOL/L Blood Urea Nitrogen 11 7-18 MG/DL Creatinine 0.98 0.60-1.30 MG/DL Estimat Glomerular Filtration Rate > 60 BUN/Creatinine Ratio 11 Glucose Level 95 70-105 MG/DL Calcium Level 9.8 8.5-10.1 MG/DL Corrected Calcium 9.5 8.5-10.1 MG/DL Magnesium Level 2.0 1.6-2.4 MG/DL Total Bilirubin 0.3 0.1-1.0 MG/DL Aspartate Amino Transf (AST/SGOT) 22 5-34 U/L Alanine Aminotransferase (ALT/SGPT) 25 0-55 U/L Alkaline Phosphatase 82 40-136 U/L Total Creatine Kinase 121 30-200 U/L Myoglobin 37.6 10.0-92.0 NG/ML Troponin I < 0.028 <0.028 NG/ML Total Protein 7.7 6.4-8.2 GM/DL Albumin 4.4 3.2-4.5 GM/DL Lipase 20 8-78 U/L Serum Alcohol < 10 <10 MG/DL Urine Color YELLOW Urine Clarity CLEAR Urine pH 6.0 5-9 Urine Specific [place] >=1.030 1.016-1.022 Urine Protein 1+ H NEGATIVE Urine Glucose (UA) NEGATIVE NEGATIVE Urine Ketones NEGATIVE NEGATIVE Urine Nitrite NEGATIVE NEGATIVE Urine Bilirubin 1+ H NEGATIVE Urine Urobilinogen 1.0 < = 1.0 MG/DL Urine Leukocyte Esterase NEGATIVE NEGATIVE Urine RBC (Auto) NEGATIVE NEGATIVE Urine RBC NONE /HPF Urine WBC 0-2 /HPF Urine Crystals PRESENT H /LPF Urine Amorphous Sediment LARGE JHOANA URATES H /LPF Urine Bacteria TRACE /HPF Urine Casts NONE /LPF Urine Mucus LARGE H /LPF Urine Other MOD SPERM H /HPF Urine Culture Indicated NO Urine Opiates Screen NEGATIVE NEGATIVE Urine Oxycodone Screen NEGATIVE NEGATIVE Urine Methadone Screen NEGATIVE NEGATIVE Urine Propoxyphene Screen NEGATIVE NEGATIVE Urine Barbiturates Screen NEGATIVE NEGATIVE Ur Tricyclic Antidepressants Screen NEGATIVE NEGATIVE Urine Phencyclidine Screen NEGATIVE NEGATIVE Urine Amphetamines Screen NEGATIVE NEGATIVE Urine Methamphetamines Screen POSITIVE H NEGATIVE Urine Benzodiazepines Screen NEGATIVE NEGATIVE Urine Cocaine Screen NEGATIVE NEGATIVE Urine Cannabinoids Screen POSITIVE H NEGATIVE (SHRUTHI RADFORD) My Orders Orders - SHRUTHI RADFORD Continuous Ekg Monitoring (01/14/21 03:59) Ekg Tracing (01/14/21 03:59) Ed Iv/Invasive Line Start (01/14/21 04:23) Lactated Ringers (Lr 1000 Ml Iv Solution (01/14/21 04:30) Cbc With Automated Diff (01/14/21 04:23) Magnesium (01/14/21 04:23) Chest 1 View, Ap/Pa Only (01/14/21 04:23) Comprehensive Metabolic Panel (01/14/21 04:23) Myoglobin Serum (01/14/21 04:23) Protime With Inr (01/14/21 04:23) Partial Thromboplastin Time (01/14/21 04:23) O2 (01/14/21 04:23) Lipid Panel (01/15/21 06:00) Ed Iv/Invasive Line Start (01/14/21 04:23) Creatine Kinase (01/14/21 04:23) Lipase (01/14/21 04:23) Troponin I (01/14/21 04:23) Nitroglycerin 0.4 Mg Btl 25's (Nitrostat (01/14/21 04:30) Aspirin Chewable Tablet (Baby Aspirin Ch (01/14/21 04:30) Ua Culture If Indicated (01/14/21 04:23) Drug Screen Stat (Urine) (01/14/21 04:23) Alcohol (01/14/21 04:23) Lorazepam Injection (Ativan Injection) (01/14/21 04:45) (SHRUTHI RADFORD) Medications Given in ED Current Medications Medications Dose Ordered Sig/[place]arson Route Start Time Stop Time Status Last Admin Dose Admin Aspirin 324 mg ONCE ONCE PO 01/14/21 04:30 01/14/21 04:31 DC 01/14/21 04:46 324 MG Lactated Ringer's 1,000 ml @ 0 mls/hr Q0M ONCE IV 01/14/21 04:30 01/14/21 04:31 DC 01/14/21 04:45 0 MLS/HR Lorazepam 1 mg ONCE ONCE IVP 01/14/21 04:45 01/14/21 04:46 DC 01/14/21 04:47 1 MG Nitroglycerin 0.4 mg UD PRN SL 01/14/21 04:30 01/14/21 04:54 0.4 MG (SHRUTHI RADFORD) Vital Signs/I&O 01/14/21 01/14/21 04:11 04:11 Temp 36.9 Pulse 91 Resp 22 B/P (MAP) 153/102 (119) Pulse Ox 100 O2 Delivery Room Air Room Air (SHRUTHI RADFORD) Progress Progress Note #1: Time: 04:55 Progress Note I attest that I saw this patient alongside the medical student and agree with his documented history, physical exam and review of systems except as otherwise noted. Patient has some significant risk factors during his smoking, methamphetamines, early onset familial coronary disease. Checking a CPK, magnesium and labs. We have given him some aspirin and will try some nitroglycerin. He is having some anxiety likely related to his use of methamphetamines and about being in the ER so a milligram of Ativan IV has been ordered in addition to a liter of fluids. Chest x-ray. Progress Note #2: Time: 05:49 Progress Note Plan to do a delta troponin at 0730. His symptoms started about an hour and a half prior to arrival. Patient states his pain is down to a 1 out of 10. He is comfortable, twitchy and watching TV. HEART Pathway Score 3 points. Low risk. 0.9-1.7% 30-day MACE. Repeat troponin at 3 hours and if negative, discharge home with outpatient follow-up. (SHRUTHI RADFORD) Progress Note : Progress Note 0600: Assumed care of the patient from Dr. Radford pending repeat troponin at 0 730. 0630: Patient resting peacefully without distress. Monitor patient. 0828: Repeat troponin completed and is negative. I did have a long discussion with the patient regarding drug abuse and follow-up care. He will follow-up with one of the florist helper. He is interested in seeking help for drug abuse. We did discuss [facility] addiction treatment services and he was very interested in that. I will give him the information for calling. Patient seemed appreciative. No indication for admission. Discharged home with return precautions. Patient verbalized understanding of instructions and agreement with plan. (OFELIA VOSS MD) Initial ECG Impression Date: January 14, 2021 Initial ECG Impression Time: 04:12 Initial ECG Rate: 83 Initial ECG Rhythm: Normal Sinus Initial ECG Intervals: Normal Initial ECG Impression: Normal, Nonspecific Changes Initial ECG Comparisson: No Previous ECG Available Comment Normal sinus rhythm with a PVC. There is nonspecific ST elevation 1/2-1-1/2 blocks in leads V2 and V3 that does not appear to be pathologic. Prominent, tented T waves. No other clinically relevant ST elevation or depression. (SHRUTHI RADFORD) Diagnostic Imaging Diagonstic Imaging: Xray Plain Films/CT/US/NM/MRI: chest Comments No acute cardiopulmonary processes on 1 view chest x-ray Reviewed: Reviewed by Me (SHRUTHI RADFORD) Transfer of Care Time: 06:00 Care transferred to: Dr. VOSS (SHRUTHI RADFORD) Departure Impression Primary Impression: Chest pain Qualified Codes: R07.9 - Chest pain, unspecified Additional Impression: Methamphetamine addiction Disposition: 01 HOME, SELF-CARE Condition: Stable Departure-Patient Inst. Decision time for Depature: 08:34 (OFELIA VOSS MD) Referrals: YAZAN LUNDBERG ALI MD FACP FACC CCDS KAMRYN ASHBY MD NO,LOCAL PHYSICIAN (PCP) Primary Care Physician Patient Instructions: Chest Pain (DC), Drug Abuse and Drug Addiction (DC) Add. Discharge Instructions: You should call the [facility] at the number listed for Dr. Lundberg and ask for addiction treatment services. Please make appointment with addiction treatment services for further care and evaluation. You should also follow-up with one of the florist helper listed for recheck and further evaluation due to the chest pain. It is important that you stop using methamphetamine. Drink plenty of fluids and eat a normal diet. Return for worse pain, fever, vomiting, weakness, breathing problems or other concerns as needed. HEATHER MORAN MED STUDENT January 14, 2021 04:36 SHRUTHI RADFORD January 14, 2021 04:59 OFELIA VOSS MD January 14, 2021 08:36
[2021-01-14] MEDS ORDERED: LORazepam INJ 2 MG/ML (ATIVAN) VIAL IVP ONE (04:45)
[2021-01-14] MEDS: NITROGLYCERIN 0.4 MG SL TABS BTL 25'S SL PRN ×2 (04:47→04:54)
[2021-01-14 04:48] LABS: BASOPHILS # (AUTO) 0.1 10^3/uL (0.0-0.1); BASOPHILS % (AUTO) 1 % (0-10); EOSINOPHILS # (AUTO) 0.2 10^3/uL (0.0-0.3); EOSINOPHILS % (AUTO) 1 % (0-10); HEMATOCRIT 48 % (40-54); HEMOGLOBIN 15.8 g/dL (13.3-17.7); LYMPHOCYTES % (AUTO) 18 % (12-44); MEAN CORPUSCULAR HEMOGLOBIN 29 pg (25-34); MEAN CORPUSCULAR HGB CONC 33 g/dL (32-36); MEAN CORPUSCULAR VOLUME 89 fL (80-99); MEAN PLATELET VOLUME 10.8 fL (9.0-12.2); MONOCYTES # (AUTO) 0.7 10^3/uL (0.0-1.0); MONOCYTES % (AUTO) 6 % (0-12); NEUTROPHILS # (AUTO) 8.2 10^3/uL (1.8-7.8); NEUTROPHILS % (AUTO) 74 % (42-75); PLATELET COUNT 249 10^3/uL (130-400); WHITE BLOOD COUNT 11.1 10^3/uL (4.3-11.0)
[2021-01-14 04:50] LABS: CLARITY,URINE CLEAR; COLOR,URINE YELLOW; GLUCOSE, URINE (UA) NEGATIVE (NEGATIVE); KETONES,URINE NEGATIVE (NEGATIVE); LEUKOCYTE ESTERASE ,URINE NEGATIVE (NEGATIVE); NITRITE,URINE NEGATIVE (NEGATIVE); PROTEIN,URINE 1+ (NEGATIVE)
[2021-01-14 04:59] LABS: ALBUMIN 4.4 GM/DL (3.2-4.5)
[2021-01-14 05:00] LABS: CHLORIDE 103 MMOL/L (98-107); POTASSIUM 3.9 MMOL/L (3.6-5.0); SODIUM 139 MMOL/L (135-145)
[2021-01-14 05:01] LABS: CALCIUM 9.8 MG/DL (8.5-10.1)
[2021-01-14 05:02] LABS: GLUCOSE 95 MG/DL (70-105); TOTAL PROTEIN 7.7 GM/DL (6.4-8.2)
[2021-01-14 05:03] LABS: CARBON DIOXIDE 24 MMOL/L (21-32)
[2021-01-14 05:04] LABS: BILIRUBIN,TOTAL 0.3 MG/DL (0.1-1.0)
[2021-01-14 05:05] LABS: ALKALINE PHOSPHATASE 82 U/L (40-136)
[2021-01-14 05:06] LABS: CREATININE SERUM 0.98 MG/DL (0.60-1.30); GFR ESTIMATED > 60
[2021-01-14 05:07] LABS: BUN/CREATININE RATIO 11
[2021-01-14 05:08] LABS: ALANINE AMINOTRANSFERASE 25 U/L (0-55)
[2021-01-14 05:10] LABS: CREATINE KINASE 121 U/L (30-200); LIPASE 20 U/L (8-78)
[2021-01-14 05:11] LABS: PROTHROMBIN TIME PATIENT 13.2 SEC (12.2-14.7)
[2021-01-14 05:14] LABS: AMORPHOUS SEDIMENT,UR LARGE AMOR URATES /LPF; BACTERIA,URINE TRACE /HPF; BILIRUBIN,URINE 1+ (NEGATIVE); WBC,URINE 0-2 /HPF
[2021-01-14 05:15] LABS: URINE OTHER MOD SPERM /HPF
[2021-01-14 05:21] LABS: AMPHETAMINE SCREEN, URINE NEGATIVE (NEGATIVE); BARBITURATE SCREEN URINE NEGATIVE (NEGATIVE); BENZODIAZEPINES SCREEN URINE NEGATIVE (NEGATIVE); CANNABINOID SCREEN, URINE POSITIVE (NEGATIVE); COCAINE SCREEN URINE NEGATIVE (NEGATIVE); METHADONE STAT NEGATIVE (NEGATIVE); METHAMPHETAMINE SCREEN URINE S POSITIVE (NEGATIVE); OPIATE SCREEN URINE NEGATIVE (NEGATIVE); OXYCODONE STAT NEGATIVE (NEGATIVE); TRICYCLIC ANTIDEPRESSANTS SCRE NEGATIVE (NEGATIVE)
[2021-01-14 05:22] LABS: PROPOXYPHENE STAT NEGATIVE (NEGATIVE)
--- NOTE | 2021-01-14 08:17 | Diagnostic Imaging Report ---
EXAMINATION: Chest radiograph, portable AP view. DATE: 01/14/2021 4:42 AM INDICATION: 30-year-old male, chest pain. COMPARISON: April 18, 2020. FINDINGS: Heart size and mediastinal contours are unremarkable. There is no identified pneumothorax. There is no large pleural effusion. There is no identified focal airspace consolidation. IMPRESSION: No identified acute cardiopulmonary abnormality. Dictated by: Dictated on workstation # [id number]
[2021-01-14 08:33] VITALS: BP 136/82
== END 2021-01-14 08:33 | disposition home or self-care (01) ==
LOC: EDUNIT# 03:56 → ER 04:00
DX: R07.9 Chest pain, unspecified (principal); F15.20 Other stimulant dependence, uncomplicated; R00.0 Tachycardia, unspecified; F41.9 Anxiety disorder, unspecified; Z77.22 Contact with and (suspected) exposure to environmental tobacco smoke (acute) (chronic); Z79.899 Other long term (current) drug therapy
CPT/HCPCS: 71045; 80053; 80306; 81000; 82550; 83690; 83735; 83874; 84484; 85025; 85610; 85730; 93005; 99284; G0480; 36415; 80320

== ENCOUNTER 2021-03-06 02:08 | Emergency (ER) | payer SELFPAY ==
[~2021-03-06] VITALS: Ht 173 cm; Wt 76.2 kg
[~2021-03-06 02:08] MED LIST changes: -OMEP40CA27 PO; +OMEP40CA6 PO
[2021-03-06] MEDS ORDERED: LORazepam 0.5 MG (ATIVAN) TABLET PO STA (02:25)
--- NOTE | 2021-03-06 02:25 | ED General ---
General Chief Complaint: General Problems/Pain Stated Complaint: SMOKED METH AND NOW HAS ARM/LEG NUMBNESS Nursing Triage Note: patient reports smoking meth 2 hours ago and now his extremities are numb and feeling butterflies in his chest Source of Information: Patient Exam Limitations: No Limitations History of Present Illness Date Seen by Provider: Mar 06, 2021 Time Seen by Provider: 02:10 Initial Comments Patient is a 30-year-old male who presents to the emergency department tonight with a chief complaint of feeling numbness in his arms and legs after smoking methamphetamine about 2 hours ago. Patient states that originally he felt okay and then approximately 30 minutes ago his symptoms came on. He denies any chest pain. He does have a rapid heartbeat. He denies shortness of breath. He states this is happened a couple of times before and describes it as a "panicky feeling". When asked what he is done for this in the past he states "I just panic". Patient denies any nausea vomiting or diarrhea no other GI or complaints. All other review of systems reviewed and negative except as stated. Timing/Duration: 1 Hour Severity: Moderate Associated Systoms: Denies Symptoms Allergies and Home Medications Allergies Coded Allergies: PETERANo Known Allergies (Unverified Allergy, Mild, 11/28/08) Home Medications Amoxicillin/Potassium Clav 1 Each Tablet, 1 EACH PO BID Prescribed by: ABEBA THEODORE on 05/04/20 154 Buspirone Hcl 10 Mg Tablet, 10 MG PO TID, (Reported) Cyclobenzaprine HCl 10 Mg Tablet, 10 MG PO Q8H PRN for SPASMS Prescribed by: STORMY RASHID on 06/15/152201 Naproxen 500 Mg Tablet, 500 MG PO BID Prescribed by: STORMY RASHID on 06/15/152201 Omeprazole 40 Mg Capsule.dr, 40 MG PO DAILY Prescribed by: SHRUTHI MCCOY on 04/18/201211 Prednisone 20 Mg Tab, 40 MG PO DAILY Prescribed by: STORMY RASHID on 06/15/152201 Sucralfate 1 Gm Tablet, 1 GM PO QIDACHS Prescribed by: SHRUTHI MCCOY on 04/18/201211 Patient Home Medication List Home Medication List Reviewed: Yes Review of Systems Review of Systems Constitutional: see HPI EENTM: no symptoms reported Respiratory: no symptoms reported Cardiovascular: no symptoms reported Gastrointestinal: no symptoms reported Genitourinary: no symptoms reported Musculoskeletal: no symptoms reported Skin: no symptoms reported Psychiatric/Neurological: Numbness All Other Systems Reviewed Negative Unless Noted: Yes Past Jdlixuv-Vatwbk-Cbhxlw Hx Patient Social History Tobacco Use?: Yes Tobacco type used: Cigarettes Smoking Status: Current Everyday Smoker Substance use?: Yes Substance type: Methamphetamine, Marijuana Alcohol Use?: No Pt feels they are or have been: No Seasonal Allergies Seasonal Allergies: No Past Medical History Surgeries: Yes (jaw) Respiratory: No Cardiac: No Neurological: No Reproductive Disorders: No Gastrointestinal: No Musculoskeletal: No Endocrine: No HEENT: No Cancer: No Psychosocial: Yes Anxiety Integumentary: No Blood Disorders: No (HEP C+) Family Medical History No Pertinent Family Hx Physical Exam Vital Signs Vital Signs - First Documented 03/06/21 02:14 Temp 36.4 Pulse 120 Resp 18 B/P (MAP) 151/94 (113) Pulse Ox 100 O2 Delivery Room Air Capillary Refill : Less Than 3 Seconds Height, Weight, BMI Height: 5'10" Weight: 189lbs. oz. 85.779792su; 25.00 BMI Method:Stated General Appearance: No Apparent Distress, WD/WN HEENT: Other (poor dentition) Neck: Normal Inspection Respiratory: Lungs Clear, Normal Breath Sounds, No Accessory Muscle Use, No Respiratory Distress Cardiovascular: Regular Rate, Rhythm, Normal Peripheral Pulses, Tachycardia Gastrointestinal: Non Tender, Soft Extremity: Normal Capillary Refill, Normal Inspection, Normal Range of Motion Neurologic/Psychiatric: Alert, Oriented x3, No Motor/Sensory Deficits, Normal Mood/Affect, marble cutter II-XII Norm as Tested Skin: Normal Color, Warm/Dry Progress/Results/Core Measures Suspected Sepsis SIRS Temperature: Pulse: 120 Respiratory Rate: 18 Blood Pressure 151 /94 Mean: 113 Laboratory Tests 03/06/21 02:27: Creatinine 1.05 Results/Orders Lab Results Laboratory Tests Test 03/06/21 02:27 Range/Units Sodium Level 138 135-145 MMOL/L Potassium Level 3.4 L 3.6-5.0 MMOL/L Chloride Level 102 98-107 MMOL/L Carbon Dioxide Level 21 21-32 MMOL/L Anion Gap 15 H 5-14 MMOL/L Blood Urea Nitrogen 7 7-18 MG/DL Creatinine 1.05 0.60-1.30 MG/DL Estimat Glomerular Filtration Rate > 60 BUN/Creatinine Ratio 7 Glucose Level 138 H 70-105 MG/DL Calcium Level 9.5 8.5-10.1 MG/DL My Orders Orders - ADRIEN QUINTERO MD Basic Metabolic Panel (03/06/21 02:25) Lorazepam Tablet (Ativan Tablet) (03/06/21 02:25) Vital Signs/I&O 03/06/21 02:14 Temp 36.4 Pulse 120 Resp 18 B/P (MAP) 151/94 (113) Pulse Ox 100 O2 Delivery Room Air Capillary Refill : Less Than 3 Seconds Blood Pressure Mean: 113 Progress Note : Time: 03:03 Progress Note Labs reviewed and withim normal limits (potassium a little low but manageable as outpatient with dietary supplementation). Patient is counselled on cessation of meth. Offerred resources such as [facility] ([facility]) Departure Impression Primary Impression: Paresthesia Additional Impression: Methamphetamine addiction Disposition: 01 HOME, SELF-CARE Condition: Stable Departure-Patient Inst. Decision time for Depature: 03:05 Referrals: [facility] [place],LOCAL PHYSICIAN (PCP) Primary Care Physician Patient Instructions: Drug Abuse Treatment Add. Discharge Instructions: Please drink fluids to stay well hydrated. You should try and stop doing meth. [facility] is an option. You can call them or go there to find out more information. [address] [place] [address] ADRIEN QUINTERO MD Mar 06, 2021 02:25
[2021-03-06 02:47] LABS: CHLORIDE 102 MMOL/L (98-107); POTASSIUM 3.4 MMOL/L (3.6-5.0); SODIUM 138 MMOL/L (135-145)
[2021-03-06 02:48] LABS: CALCIUM 9.5 MG/DL (8.5-10.1); GLUCOSE 138 MG/DL (70-105)
[2021-03-06 02:50] LABS: CARBON DIOXIDE 21 MMOL/L (21-32)
[2021-03-06 02:52] LABS: CREATININE SERUM 1.05 MG/DL (0.60-1.30); GFR ESTIMATED > 60
[2021-03-06 02:53] LABS: BUN/CREATININE RATIO 7
[2021-03-06 03:15] VITALS: BP 151/94
== END 2021-03-06 03:16 | disposition home or self-care (01) ==
LOC: EDUNIT# 02:08 → ER 02:10
DX: R20.2 Paresthesia of skin (principal); F15.20 Other stimulant dependence, uncomplicated; F41.9 Anxiety disorder, unspecified; F17.210 Nicotine dependence, cigarettes, uncomplicated; Z79.899 Other long term (current) drug therapy; Z79.52 Long term (current) use of systemic steroids
CPT/HCPCS: 36415; 80048; 99283

== ENCOUNTER 2022-03-13 21:18 | Emergency (ER) | payer SELFPAY ==
[~2022-03-13] VITALS: Ht 177.8 cm; Wt 79.4 kg
[~2022-03-13 21:18] MED LIST changes: +CYCL10TA25 PO; -CYCL10TA9 PO
[2022-03-13] MEDS ORDERED: LORazepam 0.5 MG (ATIVAN) TABLET PO STA (21:34)
[2022-03-13] MEDS ORDERED: NS IV 1000 ML 1,000 ML IV STA (21:34)
--- NOTE | 2022-03-13 21:39 | ED General ---
General Chief Complaint: Substance Abuse Stated Complaint: METH USE Source of Information: Patient Exam Limitations: No Limitations (BOBBY GAUTHIER) History of Present Illness Date Seen by Provider: Mar 13, 2022 Time Seen by Provider: 21:37 Initial Comments Patient is a 31-year-old male with a history of methamphetamine abuse use presents ED with chest tightness, cramping in his upper extremities and face. This started about 2 hours ago. Patient states he smoked a bowl of marijuana started having cramping in his hands that radiated up to his shoulders. Started having cramping's of the face, head. This has improved. Had associated chest tenderness with fast heart rate. Patient reports similar symptoms in the past. Was referred to cardiology but has not followed up. Meth use yesterday with a history of meth use. Denies cocaine use. Intermittent alcohol use. Denies fever, vomiting, diarrhea, cough, shortness of breath, abdominal pain, dysuria, hematuria. Denies of any recent travels or surgeries. (BOBBY GAUTHIER) Allergies and Home Medications Allergies Coded Allergies: NKANo Known Allergies (Unverified Allergy, Mild, 11/28/08) Patient Home Medication List Home Medication List Reviewed: Yes (BOBBY GAUTHIER) Amoxicillin/Potassium Clav (Augmentin 875-125 Tablet) 1 Each Tablet, 1 EACH PO BID Prescribed by: ABEBA THEODORE on 05/04/20 1547 Buspirone Hcl (Buspar) 10 Mg Tablet, 10 MG PO TID, (Reported) Entered as Reported by: MARIE VALERIO on 04/13/14 1559 Cyclobenzaprine HCl (Cyclobenzaprine HCl) 10 Mg Tablet, 10 MG PO Q8H PRN for SPASMS Prescribed by: STORMY RASHID on 06/15/152201 Naproxen (Naprosyn) 500 Mg Tablet, 500 MG PO BID Prescribed by: STORMY RASHID on 06/15/152201 Omeprazole (Omeprazole) 40 Mg Capsule.dr, 40 MG PO DAILY Prescribed by: SHRUTHI MCCOY on 04/18/20 1212 Prednisone (Prednisone) 20 Mg Tab, 40 MG PO DAILY Prescribed by: STORMY RASHID on 06/15/152201 Sucralfate (Carafate) 1 Gm Tablet, 1 GM PO QIDACHS Prescribed by: SHRUTHI MCCOY on 04/18/20 1212 [seroquel] , (Reported) Entered as Reported by: MYRTLE SOLITARIO on 06/15/152108 Review of Systems Review of Systems Constitutional: No chills, No diaphoresis, No malaise, No weakness EENTM: No blurred vision, No double vision Respiratory: No cough, No dyspnea on exertion Cardiovascular: chest pain; No edema, No palpitations Gastrointestinal: No abdominal pain, No diarrhea, No nausea, No vomiting Genitourinary: No decreased output, No discharge Musculoskeletal: No back pain, No joint pain Skin: No change in color, No change in hair/nails Psychiatric/Neurological: Anxiety (BOBBY GAUTHIER) All Other Systems Reviewed Negative Unless Noted: Yes (BOBBY GAUTHIER) Past Twbfvfl-Tkgjsv-Dlnhyt Hx Seasonal Allergies Seasonal Allergies: No (BOBBY GAUTHIER) Past Medical History Surgeries: Yes (jaw) Respiratory: No Cardiac: No Neurological: No Reproductive Disorders: No Gastrointestinal: No Musculoskeletal: No Endocrine: No HEENT: No Cancer: No Psychosocial: Yes Anxiety Integumentary: No Blood Disorders: No (HEP C+) (BOBBY GAUTHIER) Family Medical History No Pertinent Family Hx (BOBBY GAUTHIER) Physical Exam Vital Signs Vital Signs - First Documented 03/13/22 21:28 Temp 37.0 Pulse 93 Resp 16 B/P (MAP) 157/108 (124) Pulse Ox 97 (CHERRY PALMER MD) Vital Signs Capillary Refill : (BOBBY GAUTHIER) Height, Weight, BMI Height: 5'10" Weight: 189lbs. oz. 85.825172vv; 25.00 BMI Method:Stated General Appearance: No Apparent Distress, WD/WN Eyes: Bilateral Eye Normal Inspection, Bilateral Eye PERRL, Bilateral Eye EOMI HEENT: PERRL/EOMI, TMs Normal, Normal ENT Inspection, Pharynx Normal Neck: Full Range of Motion, Normal Inspection, Non Tender, Supple Respiratory: Chest Non Tender, Lungs Clear, Normal Breath Sounds, No Accessory Muscle Use, No Respiratory Distress Cardiovascular: Regular Rate, Rhythm, No Edema, No Gallop, No JVD Gastrointestinal: Normal Bowel Sounds, No Organomegaly, No Pulsatile Mass, Non Tender, Soft Back: Normal Inspection, No CVA Tenderness, No Vertebral Tenderness Extremity: Normal Capillary Refill, Normal Inspection, Normal Range of Motion, Non Tender Neurologic/Psychiatric: Alert, Oriented x3, No Motor/Sensory Deficits, Normal Mood/Affect, director revenue II-XII Norm as Tested Skin: Normal Color, Warm/Dry (BOBBY GAUTHIER) Progress/Results/Core Measures Suspected Sepsis SIRS Temperature: Pulse: Respiratory Rate: Laboratory Tests 03/13/22 21:35: White Blood Count 13.4H Blood Pressure / Mean: Laboratory Tests 03/13/22 21:35: Creatinine 0.89, Platelet Count 285, Total Bilirubin 0.4 (BOBBY GAUTHIER) Results/Orders Lab Results Laboratory Tests Test 03/13/22 21:35 03/13/22 21:40 Range/Units White Blood Count 13.4 H 4.3-11.0 10^3/uL Red Blood Count 5.02 4.30-5.52 10^6/uL Hemoglobin 15.3 13.3-17.7 g/dL Hematocrit 45 40-54 % Mean Corpuscular Volume 89 80-99 fL Mean Corpuscular Hemoglobin 31 25-34 pg Mean Corpuscular Hemoglobin Concent 34 32-36 g/dL Red Cell Distribution Width 12.8 10.0-14.5 % Platelet Count 285 130-400 10^3/uL Mean Platelet Volume 10.5 9.0-12.2 fL Immature Granulocyte % (Auto) 0 % Neutrophils (%) (Auto) 67 42-75 % Lymphocytes (%) (Auto) 22 12-44 % Monocytes (%) (Auto) 8 0-12 % Eosinophils (%) (Auto) 3 0-10 % Basophils (%) (Auto) 1 0-10 % Neutrophils # (Auto) 8.9 H 1.8-7.8 10^3/uL Lymphocytes # (Auto) 2.9 1.0-4.0 10^3/uL Monocytes # (Auto) 1.0 0.0-1.0 10^3/uL Eosinophils # (Auto) 0.4 H 0.0-0.3 10^3/uL Basophils # (Auto) 0.1 0.0-0.1 10^3/uL Immature Granulocyte # (Auto) 0.0 0.0-0.1 10^3/uL Sodium Level 136 135-145 MMOL/L Potassium Level 3.1 L 3.6-5.0 MMOL/L Chloride Level 101 98-107 MMOL/L Carbon Dioxide Level 21 21-32 MMOL/L Anion Gap 14 5-14 MMOL/L Blood Urea Nitrogen 5 L 7-18 MG/DL Creatinine 0.89 0.60-1.30 MG/DL Estimat Glomerular Filtration Rate 119 BUN/Creatinine Ratio 6 Glucose Level 126 H 70-105 MG/DL Calcium Level 9.5 8.5-10.1 MG/DL Corrected Calcium 9.3 8.5-10.1 MG/DL Total Bilirubin 0.4 0.1-1.0 MG/DL Aspartate Amino Transf (AST/SGOT) 35 H 5-34 U/L Alanine Aminotransferase (ALT/SGPT) 72 H 0-55 U/L Alkaline Phosphatase 97 40-136 U/L Total Creatine Kinase 135 30-200 U/L Troponin I < 0.028 <0.028 NG/ML Total Protein 7.5 6.4-8.2 GM/DL Albumin 4.2 3.2-4.5 GM/DL Lipase 26 8-78 U/L Urine Color YELLOW Urine Clarity CLEAR Urine pH 6.0 5-9 Urine Specific [place] 1.010 L 1.016-1.022 Urine Protein NEGATIVE NEGATIVE Urine Glucose (UA) NEGATIVE NEGATIVE Urine Ketones NEGATIVE NEGATIVE Urine Nitrite NEGATIVE NEGATIVE Urine Bilirubin NEGATIVE NEGATIVE Urine Urobilinogen 0.2 < = 1.0 MG/DL Urine Leukocyte Esterase NEGATIVE NEGATIVE Urine RBC (Auto) NEGATIVE NEGATIVE Urine RBC NONE /HPF Urine WBC 0-2 /HPF Urine Squamous Epithelial Cells NONE /HPF Urine Renal Epithelial Cells NONE /HPF Urine Crystals NONE /LPF Urine Bacteria NEGATIVE /HPF Urine Casts NONE /LPF Urine Mucus NEGATIVE /LPF Urine Other FEW SPERM H /HPF Urine Culture Indicated NO Urine Opiates Screen NEGATIVE NEGATIVE Urine Oxycodone Screen NEGATIVE NEGATIVE Urine Methadone Screen NEGATIVE NEGATIVE Urine Propoxyphene Screen NEGATIVE NEGATIVE Urine Barbiturates Screen NEGATIVE NEGATIVE Ur Tricyclic Antidepressants Screen NEGATIVE NEGATIVE Urine Phencyclidine Screen NEGATIVE NEGATIVE Urine Amphetamines Screen POSITIVE H NEGATIVE Urine Methamphetamines Screen POSITIVE H NEGATIVE Urine Benzodiazepines Screen NEGATIVE NEGATIVE Urine Cocaine Screen NEGATIVE NEGATIVE Urine Cannabinoids Screen POSITIVE H NEGATIVE (CHERRY PALMER MD) Medications Given in ED Current Medications Medications Dose Ordered Sig/Carson Route Start Time Stop Time Status Last Admin Dose Admin Potassium Chloride 40 meq ONCE ONCE PO 03/13/22 22:30 03/13/22 22:31 DC 03/13/22 22:33 40 MEQ (CHERRY PALMER MD) Vital Signs/I&O 03/13/22 03/13/22 21:28 22:36 Temp 37.0 Pulse 93 82 Resp 16 B/P (MAP) 157/108 (124) 126/87 Pulse Ox 97 98 03/14/22 00:00 Intake Total 1000 ml Balance 1000 ml (CHERRY PALMER MD) Vital Signs/I&O Capillary Refill : (BOBBY GAUTHIER) Departure Communication (PCP) Patient was positive for methamphetamine use. Last use was yesterday. Heart palpitation fast heart rate with cramping in his upper extremities as well as his face. Symptoms improved on arrival. Patient Was given oral Ativan 1mg with improvement. Patient was not in rhabdo. Patient Was given a liter fluid. Potassium 3.1 and was given oral potassium 40 meq. Before obtaining EKG, as it was not preformed on arrival patient was wanting to leave and refused any furthur testing as he states his ride was here. Discussed with patient unable to to diagnose any arrhythmias, EKG changes. Patient acknowledges. Patient troponin did return back normal but still limited without EKG. Discussed smoking cessation, drug sensation. If returning chest pain strongly recommend returning back to ED. (BOBBY GAUTHIER) Impression Primary Impression: Heart palpitations Additional Impression: Drug abuse Disposition: HOME, SELF-CARE Condition: Stable Departure-Patient Inst. Decision time for Depature: 22:25 (BOBBY GAUTHIER) Referrals: [facility] [place],LOCAL PHYSICIAN (PCP) Primary Care Physician Patient Instructions: Palpitations ED Add. Discharge Instructions: Recommend outpatient follow-up with primary care physician for further evaluation. If any worsening symptoms return back to ED for further evaluation. All discharge instructions reviewed with patient and/or family. Voiced understanding. ATTENDING PHYSICIAN NOTE: I was physically present as attending physician in the emergency department during the care of this patient, but I was not directly involved in the decision making or delivery of care for this patient. (CHERRY PALMER MD) BOBBY GAUTHIER Mar 13, 2022 21:39 CHERRY PALMER MD Mar 14, 2022 07:11
[2022-03-13 21:46] LABS: BASOPHILS # (AUTO) 0.1 10^3/uL (0.0-0.1); BASOPHILS % (AUTO) 1 % (0-10); EOSINOPHILS # (AUTO) 0.4 10^3/uL (0.0-0.3); EOSINOPHILS % (AUTO) 3 % (0-10); HEMATOCRIT 45 % (40-54); HEMOGLOBIN 15.3 g/dL (13.3-17.7); LYMPHOCYTES # (AUTO) 2.9 10^3/uL (1.0-4.0); LYMPHOCYTES % (AUTO) 22 % (12-44); MEAN CORPUSCULAR HEMOGLOBIN 31 pg (25-34); MEAN CORPUSCULAR HGB CONC 34 g/dL (32-36); MEAN CORPUSCULAR VOLUME 89 fL (80-99); MEAN PLATELET VOLUME 10.5 fL (9.0-12.2); MONOCYTES % (AUTO) 8 % (0-12); NEUTROPHILS # (AUTO) 8.9 10^3/uL (1.8-7.8); NEUTROPHILS % (AUTO) 67 % (42-75); PLATELET COUNT 285 10^3/uL (130-400); WHITE BLOOD COUNT 13.4 10^3/uL (4.3-11.0)
[2022-03-13 21:51] LABS: BILIRUBIN,URINE NEGATIVE (NEGATIVE); CLARITY,URINE CLEAR; COLOR,URINE YELLOW; GLUCOSE, URINE (UA) NEGATIVE (NEGATIVE); KETONES,URINE NEGATIVE (NEGATIVE); LEUKOCYTE ESTERASE ,URINE NEGATIVE (NEGATIVE); NITRITE,URINE NEGATIVE (NEGATIVE); PROTEIN,URINE NEGATIVE (NEGATIVE)
[2022-03-13 21:53] LABS: ALBUMIN 4.2 GM/DL (3.2-4.5)
[2022-03-13 21:54] LABS: CHLORIDE 101 MMOL/L (98-107); POTASSIUM 3.1 MMOL/L (3.6-5.0); SODIUM 136 MMOL/L (135-145)
--- NOTE | 2022-03-13 21:54 | Diagnostic Imaging Report ---
INDICATION: Chest tightness COMPARED: 01/14/2021 FINDINGS: The lungs are clear. No effusion, pneumothorax or failure pattern. IMPRESSION: No acute appearing abnormality. Dictated by: Dictated on workstation # [id number]
[2022-03-13 21:55] LABS: CALCIUM 9.5 MG/DL (8.5-10.1)
[2022-03-13 21:56] LABS: GLUCOSE 126 MG/DL (70-105); TOTAL PROTEIN 7.5 GM/DL (6.4-8.2)
[2022-03-13 21:57] LABS: CARBON DIOXIDE 21 MMOL/L (21-32)
[2022-03-13 21:58] LABS: BACTERIA,URINE NEGATIVE /HPF; URINE OTHER FEW SPERM /HPF; WBC,URINE 0-2 /HPF
[2022-03-13 21:58] LABS: BILIRUBIN,TOTAL 0.4 MG/DL (0.1-1.0)
[2022-03-13 21:59] LABS: ALKALINE PHOSPHATASE 97 U/L (40-136)
[2022-03-13 22:00] LABS: AMPHETAMINE SCREEN, URINE POSITIVE (NEGATIVE); BARBITURATE SCREEN URINE NEGATIVE (NEGATIVE); BENZODIAZEPINES SCREEN URINE NEGATIVE (NEGATIVE); CANNABINOID SCREEN, URINE POSITIVE (NEGATIVE); COCAINE SCREEN URINE NEGATIVE (NEGATIVE); METHADONE STAT NEGATIVE (NEGATIVE); OPIATE SCREEN URINE NEGATIVE (NEGATIVE); OXYCODONE STAT NEGATIVE (NEGATIVE); PROPOXYPHENE STAT NEGATIVE (NEGATIVE); TRICYCLIC ANTIDEPRESSANTS SCRE NEGATIVE (NEGATIVE)
[2022-03-13 22:00] LABS: CREATININE SERUM 0.89 MG/DL (0.60-1.30); GFR ESTIMATED 119
[2022-03-13 22:01] LABS: BUN/CREATININE RATIO 6
[2022-03-13 22:02] LABS: ALANINE AMINOTRANSFERASE 72 U/L (0-55)
[2022-03-13 22:03] LABS: CREATINE KINASE 135 U/L (30-200); LIPASE 26 U/L (8-78)
[2022-03-13] MEDS ORDERED: KCL 20 MEQ TAB (K-DUR) PO ONE (22:30)
[2022-03-13 22:36] VITALS: BP 126/87
== END 2022-03-13 22:38 | disposition home or self-care (01) ==
LOC: EDUNIT# 21:18 → ER 21:32
DX: R00.2 Palpitations (principal); F15.10 Other stimulant abuse, uncomplicated; F12.10 Cannabis abuse, uncomplicated; Z28.310 Unvaccinated for COVID-19
CPT/HCPCS: 36415; 71045; 80053; 80306; 81000; 82550; 83690; 84484; 85025; 99283

== ENCOUNTER 2022-04-05 17:37 | Emergency (ER) | payer SELFPAY ==
[~2022-04-05] VITALS: Ht 177 cm; Wt 80.0 kg
[2022-04-05 17:42] VITALS: BP 125/90
[2022-04-05 18:04] LABS: BILIRUBIN,URINE NEGATIVE (NEGATIVE); CLARITY,URINE CLEAR; COLOR,URINE YELLOW; GLUCOSE, URINE (UA) NEGATIVE (NEGATIVE); KETONES,URINE NEGATIVE (NEGATIVE); LEUKOCYTE ESTERASE ,URINE NEGATIVE (NEGATIVE); NITRITE,URINE NEGATIVE (NEGATIVE); PH,URINE 6.5 (5-9); PROTEIN,URINE NEGATIVE (NEGATIVE)
[2022-04-05 18:20] LABS: AMPHETAMINE SCREEN, URINE POSITIVE (NEGATIVE); BARBITURATE SCREEN URINE NEGATIVE (NEGATIVE); BENZODIAZEPINES SCREEN URINE NEGATIVE (NEGATIVE); CANNABINOID SCREEN, URINE POSITIVE (NEGATIVE); COCAINE SCREEN URINE NEGATIVE (NEGATIVE); METHADONE STAT NEGATIVE (NEGATIVE); OPIATE SCREEN URINE NEGATIVE (NEGATIVE); OXYCODONE STAT NEGATIVE (NEGATIVE); PROPOXYPHENE STAT NEGATIVE (NEGATIVE); TRICYCLIC ANTIDEPRESSANTS SCRE NEGATIVE (NEGATIVE)
[2022-04-05 18:24] LABS: BACTERIA,URINE TRACE /HPF; URINE OTHER MOD SPERM /HPF; WBC,URINE RARE /HPF
--- NOTE | 2022-04-05 18:35 | ED General ---
General Chief Complaint: General Problems/Pain Stated Complaint: COLD, NUMBNESS Nursing Triage Note: pt. reports 1 hour ago, had episode of "vision went in and out and my feet went numb and cold". symptoms self resolved. in no distress. here for eval and tx Source of Information: Patient Exam Limitations: No Limitations History of Present Illness Date Seen by Provider: Apr 05, 2022 Time Seen by Provider: 18:34 Initial Comments Patient is a 31-year-old male with a history of methamphetamine use who presents ED with bilateral vision changes, coolness, numbness into his legs and lips. Symptoms started 2 hours ago. The symptoms have improved. He reports mild visual changes right upon arrival but that has improved. Denies headache, unilateral muscle weakness or sensory changes, visual loss, vomiting, fever, chills, headache, dizziness. Reports history of similar symptoms 3-4 times typically last for about 25 minutes. History of heart palpitations and was recommended to follow-up with a [facility] Allergies and Home Medications Allergies Coded Allergies: NKANo Known Allergies (Unverified Allergy, Mild, 11/28/08) Patient Home Medication List Home Medication List Reviewed: Yes Amoxicillin/Potassium Clav (Augmentin 875-125 Tablet) 1 Each Tablet, 1 EACH PO BID Prescribed by: ABEBA THEODORE on 05/04/20 1547 Buspirone Hcl (Buspar) 10 Mg Tablet, 10 MG PO TID, (Reported) Entered as Reported by: MARIE VALERIO on 04/13/14 1559 Cyclobenzaprine HCl (Cyclobenzaprine HCl) 10 Mg Tablet, 10 MG PO Q8H PRN for SPASMS Prescribed by: STORMY RASHID on 06/15/152201 Naproxen (Naprosyn) 500 Mg Tablet, 500 MG PO BID Prescribed by: STORMY RASHID on 06/15/152201 Omeprazole (Omeprazole) 40 Mg Capsule.dr, 40 MG PO DAILY Prescribed by: SHRUTHI MCCOY on 04/18/201211 Prednisone (Prednisone) 20 Mg Tab, 40 MG PO DAILY Prescribed by: STORMY RASHID on 06/15/152201 Sucralfate (Carafate) 1 Gm Tablet, 1 GM PO QIDACHS Prescribed by: SHRUTHI MCCOY on 04/18/20 1212 [seroquel] , (Reported) Entered as Reported by: MYRTLE SOLITARIO on 06/15/152108 Review of Systems Review of Systems Constitutional: No chills, No diaphoresis, No malaise, No weakness EENTM: other (lips turn blue); No hearing loss, No blurred vision, No mouth pain, No mouth swelling Respiratory: No cough, No dyspnea on exertion, No short of breath Cardiovascular: chest pain Gastrointestinal: No abdominal pain, No nausea, No vomiting Genitourinary: No decreased output, No discharge Musculoskeletal: No back pain, No joint pain; muscle pain Skin: No change in color Psychiatric/Neurological: Anxiety, Paresthesia All Other Systems Reviewed Negative Unless Noted: Yes Past Cbnbbzi-Ooflov-Xksnym Hx Patient Social History Tobacco Use?: Yes Tobacco type used: Cigarettes Smoking Status: Current Everyday Smoker Use of E-Cig and/or Vaping dev: No Substance use?: Yes Substance type: Amphetamines, Marijuana Additional substance use comme: last used meth 3 days ago Alcohol Frequency: Once in a while Pt feels they are or have been: No Immunizations Up To Date Influenza Vaccine Up-to-Date: No; Not Current Seasonal Allergies Seasonal Allergies: No Past Medical History Surgeries: Yes (jaw) Respiratory: No Cardiac: No Neurological: No Reproductive Disorders: No Gastrointestinal: No Musculoskeletal: No Endocrine: No HEENT: No Cancer: No Psychosocial: Yes Anxiety Integumentary: No Blood Disorders: No (HEP C+) Family Medical History No Pertinent Family Hx Physical Exam Vital Signs Vital Signs - First Documented 04/05/22 17:42 Temp 36.6 Pulse 75 Resp 18 B/P (MAP) 125/90 (102) Pulse Ox 96 Capillary Refill : Less Than 3 Seconds Height, Weight, BMI Height: 5'10" Weight: 189lbs. oz. 85.791712iw; 25.00 BMI Method:Stated General Appearance: No Apparent Distress, WD/WN Eyes: Bilateral Eye Normal Inspection, Bilateral Eye PERRL, Bilateral Eye EOMI HEENT: PERRL/EOMI, TMs Normal, Normal ENT Inspection, Pharynx Normal Neck: Full Range of Motion, Normal Inspection, Non Tender Respiratory: Chest Non Tender, Lungs Clear, Normal Breath Sounds, No Accessory Muscle Use, No Respiratory Distress Cardiovascular: Regular Rate, Rhythm, No Edema, No Gallop, No JVD Gastrointestinal: Normal Bowel Sounds, No Organomegaly, No Pulsatile Mass Extremity: Normal Capillary Refill, Normal Inspection, Normal Range of Motion Neurologic/Psychiatric: Alert, Oriented x3, No Motor/Sensory Deficits, Normal Mood/Affect, advice clerk II-XII Norm as Tested Skin: Normal Color, Warm/Dry Progress/Results/Core Measures Suspected Sepsis SIRS Temperature: Pulse: 75 Respiratory Rate: 18 Blood Pressure 125 /90 Mean: 102 Results/Orders Lab Results Laboratory Tests Test 04/05/22 17:57 Range/Units Urine Color YELLOW Urine Clarity CLEAR Urine pH 6.5 5-9 Urine Specific [place] 1.025 H 1.016-1.022 Urine Protein NEGATIVE NEGATIVE Urine Glucose (UA) NEGATIVE NEGATIVE Urine Ketones NEGATIVE NEGATIVE Urine Nitrite NEGATIVE NEGATIVE Urine Bilirubin NEGATIVE NEGATIVE Urine Urobilinogen 0.2 < = 1.0 MG/DL Urine Leukocyte Esterase NEGATIVE NEGATIVE Urine RBC (Auto) NEGATIVE NEGATIVE Urine RBC NONE /HPF Urine WBC RARE /HPF Urine Squamous Epithelial Cells NONE /HPF Urine Crystals NONE /LPF Urine Bacteria TRACE /HPF Urine Casts NONE /LPF Urine Mucus MODERATE H /LPF Urine Other MOD SPERM H /HPF Urine Culture Indicated NO Urine Opiates Screen NEGATIVE NEGATIVE Urine Oxycodone Screen NEGATIVE NEGATIVE Urine Methadone Screen NEGATIVE NEGATIVE Urine Propoxyphene Screen NEGATIVE NEGATIVE Urine Barbiturates Screen NEGATIVE NEGATIVE Ur Tricyclic Antidepressants Screen NEGATIVE NEGATIVE Urine Phencyclidine Screen NEGATIVE NEGATIVE Urine Amphetamines Screen POSITIVE H NEGATIVE Urine Methamphetamines Screen POSITIVE H NEGATIVE Urine Benzodiazepines Screen NEGATIVE NEGATIVE Urine Cocaine Screen NEGATIVE NEGATIVE Urine Cannabinoids Screen POSITIVE H NEGATIVE My Orders Orders - BOBBY GAUTHIER PA Ekg Tracing (04/05/22 17:49) Urinalysis (04/05/22 17:49) Drug Screen Stat (Urine) (04/05/22 17:49) Cbc With Automated Diff (04/05/22 18:32) Comprehensive Metabolic Panel (04/05/22 18:32) Lipase (04/05/22 18:32) Troponin I Bailey (04/05/22 18:32) Chest 1 View, Ap/Pa Only (04/05/22 18:32) Bnp Mariya (04/05/22 18:33) Lorazepam Tablet (Ativan Tablet) (04/05/22 18:48) Vital Signs/I&O 04/05/22 17:42 Temp 36.6 Pulse 75 Resp 18 B/P (MAP) 125/90 (102) Pulse Ox 96 Capillary Refill : Less Than 3 Seconds Blood Pressure Mean: 102 Departure Communication (PCP) Patient on arrival states he had a feeling of bilateral visual changes, sensation of feeling cold, numbness of his lips and lower extremity. The symptoms improved. He states he started having visual changes with a black dot in his right lateral outer vision during his stay. Denies of any current unilateral muscle weakness, sensory changes, facial droop, middle lower back pain. It appears to be monocular of his right eye. Discussed CT scan rule out potential central retinal arterial occlusion. He agreed. Patient reports methamphetamine use. Has been seen here for heart palpitation and drug use in the past. Before lab work and CT scan was obtained patient states he needed to go to take his anxiety medication. He did get anxious here and I was willing to give Ativan p.o. Patient states he will return if symptoms worsen. Patient left AMA before signing paperwork Impression Primary Impression: Visual changes Disposition: 07 AGAINST MEDICAL ADVICE Condition: Unchanged Departure-Patient Inst. Decision time for Depature: 18:58 Referrals: NO,LOCAL PHYSICIAN (PCP/Family) Primary Care Physician Patient Instructions: Anxiety, Adult (DC) Add. Discharge Instructions: Recommend returning if symptoms worsen All discharge instructions reviewed with patient and/or family. Voiced understanding. BOBBY GAUTHIER Apr 05, 2022 18:35
[2022-04-05] MEDS ORDERED: LORazepam 0.5 MG (ATIVAN) TABLET PO STA (18:48)
--- NOTE | 2022-04-05 18:53 | Diagnostic Imaging Report ---
INDICATION: Chest pain. COMPARISON: 03/13/2022. FINDINGS: Single frontal view of the chest demonstrates normal heart size and pulmonary vascularity. The lungs are well aerated and clear. No large pleural effusion or pneumothorax is seen. The visualized osseous structures show no acute abnormalities. IMPRESSION: No acute cardiopulmonary process. Dictated by: Dictated on workstation # [id number]
== END 2022-04-05 19:03 | disposition left against medical advice (07) ==
LOC: EDUNIT# 17:37 → ER 17:40
DX: H54.7 Unspecified visual loss (principal); R20.0 Anesthesia of skin; R20.8 Other disturbances of skin sensation; F17.210 Nicotine dependence, cigarettes, uncomplicated; Z28.310 Unvaccinated for COVID-19
CPT/HCPCS: 71045; 80306; 81000; 93005

== ENCOUNTER 2022-12-11 20:03 | Emergency (ER) | payer SELFPAY ==
[~2022-12-11] VITALS: Ht 177.8 cm; Wt 77.6 kg
[2022-12-11 20:34] LABS: BASOPHILS # (AUTO) 0.1 10^3/uL (0.0-0.1); BASOPHILS % (AUTO) 1 % (0-10); EOSINOPHILS # (AUTO) 0.3 10^3/uL (0.0-0.3); EOSINOPHILS % (AUTO) 3 % (0-10); HEMATOCRIT 41 % (40-54); HEMOGLOBIN 14.6 g/dL (13.3-17.7); LYMPHOCYTES # (AUTO) 2.3 10^3/uL (1.0-4.0); LYMPHOCYTES % (AUTO) 25 % (12-44); MEAN CORPUSCULAR HEMOGLOBIN 31 pg (25-34); MEAN CORPUSCULAR HGB CONC 35 g/dL (32-36); MEAN CORPUSCULAR VOLUME 86 fL (80-99); MEAN PLATELET VOLUME 10.8 fL (9.0-12.2); MONOCYTES # (AUTO) 0.8 10^3/uL (0.0-1.0); MONOCYTES % (AUTO) 8 % (0-12); NEUTROPHILS # (AUTO) 5.7 10^3/uL (1.8-7.8); NEUTROPHILS % (AUTO) 62 % (42-75); PLATELET COUNT 233 10^3/uL (130-400); WHITE BLOOD COUNT 9.1 10^3/uL (4.3-11.0)
[2022-12-11 20:35] LABS: BILIRUBIN,URINE NEGATIVE (NEGATIVE); CLARITY,URINE CLEAR; COLOR,URINE YELLOW; GLUCOSE, URINE (UA) NEGATIVE (NEGATIVE); KETONES,URINE NEGATIVE (NEGATIVE); LEUKOCYTE ESTERASE ,URINE NEGATIVE (NEGATIVE); NITRITE,URINE NEGATIVE (NEGATIVE); PROTEIN,URINE TRACE (NEGATIVE)
--- NOTE | 2022-12-11 20:56 | ED General ---
General Chief Complaint: Substance Abuse Stated Complaint: DRUG ABUSE|ANXIOUS Nursing Triage Note: PT TO ED VIA [facility], STATES "I FEEL NUMB HEAD TO TOE AND I CAN'T BREATHE IN ANY OXYGEN MY FACE IS TWITCHING." PT REPORTS METH & THC USE THIS AM. PT DENIES PAIN, APPEARS RESTLESS DURING TRIAGE. Source of Information: Patient Exam Limitations: No Limitations (BOBBY GAUTHIER) History of Present Illness Date Seen by Provider: Dec 11, 2022 Time Seen by Provider: 20:54 Initial Comments Patient is a 32-year-old male who was brought to ED by EMS for complaint of feeling down. He states he was numb from his head to his toes. This occurred about 20 minutes right before arrival. He was sitting at home at the time. States he was having difficulty swallowing and breathing. He noticed his hands were twitching at that time. Patient states right before arrival symptoms appear to be improving. States he is able to move his extremities better at this time. Denied of any chest pain, shortness of breath, fever , chills, cough, vomiting, diarrhea or back pain during this episode. He had no headache or unilateral muscle weakness, facial droop, slurred speech, loss of vision. History of similar symptoms last March. States this feels very similar but worse. He did report using meth and marijuana this morning with history of frequent use. Denies of any suicidal homicidal thoughts (BOBBY GAUTHIER) Allergies and Home Medications Allergies Coded Allergies: NKANo Known Allergies (Unverified Allergy, Mild, 11/28/08) Patient Home Medication List Home Medication List Reviewed: Yes (BOBBY GAUTHIER) Amoxicillin/Potassium Clav (Augmentin 875-125 Tablet) 1 Each Tablet, 1 EACH PO BID Prescribed by: ABEBA THEODORE on 05/04/20 1547 Buspirone Hcl (Buspar) 10 Mg Tablet, 10 MG PO TID, (Reported) Entered as Reported by: MARIE VALERIO on 04/13/14 1559 Cyclobenzaprine HCl (Cyclobenzaprine HCl) 10 Mg Tablet, 10 MG PO Q8H PRN for SPASMS Prescribed by: STORMY RASHID on 06/15/152201 Naproxen (Naprosyn) 500 Mg Tablet, 500 MG PO BID Prescribed by: STORMY RASHID on 06/15/152201 Omeprazole (Omeprazole) 40 Mg Capsule.dr, 40 MG PO DAILY Prescribed by: SHRUTHI MCCOY on 04/18/201211 Potassium Chloride (Potassium Chloride) 20 Meq Tablet.er, 20 MEQ PO DAILY Prescribed by: HELEN BARRERA on 12/11/222131 Prednisone (Prednisone) 20 Mg Tab, 40 MG PO DAILY Prescribed by: STORMY RASHID on 06/15/152201 Sucralfate (Carafate) 1 Gm Tablet, 1 GM PO QIDACHS Prescribed by: SHRUTHI MCCOY on 04/18/201211 [seroquel] , (Reported) Entered as Reported by: MYRTLE SOLITARIO on 06/15/152108 Review of Systems Review of Systems Constitutional: No chills, No diaphoresis, No malaise, No weakness; other (To the) EENTM: No blurred vision, No double vision Respiratory: No cough, No dyspnea on exertion Cardiovascular: No edema Gastrointestinal: No abdominal pain, No diarrhea, No nausea, No vomiting Genitourinary: No decreased output, No discharge Musculoskeletal: No back pain, No joint pain Skin: No change in color, No change in hair/nails Psychiatric/Neurological: Denies Headache; Numbness, Paresthesia; Denies Seizure; Tingling; Denies Tremors, Denies Weakness (BOBBY GAUTHIER) All Other Systems Reviewed Negative Unless Noted: Yes (BOBBY GAUTHIER) Past Czilqdg-Roxrva-Drxsxm Hx Patient Social History Tobacco Use?: Yes Tobacco type used: Cigarettes Smoking Status: Current Everyday Smoker Use of E-Cig and/or Vaping dev: Yes E-Cig or Vaping type used: Nicotine Use of E-Cig and/or Vaping Bryson: Current Everyday User Substance use?: Yes Substance type: Methamphetamine, Marijuana Additional substance use comme: PT REPORTS HX OF IV DRUG USE, CURRENTLY SMOKES METH & THC Substance frequency: Daily Alcohol Use?: Yes Alcohol Frequency: Once in a while (BOBBY GAUTHIER) Immunizations Up To Date First/Initial COVID19 Vaccinat: NONE Second COVID19 Vaccination Chato: NONE Third COVID19 Vaccination Date: NONE COVID19 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: NONE (BOBBY GAUTHIER) Seasonal Allergies Seasonal Allergies: No (BOBBY GAUTHIER) Past Medical History Surgery/Hospitalization HX: HEP C +, [facility] Surgeries: Yes (jaw) Respiratory: No Cardiac: No Neurological: No Reproductive Disorders: No Gastrointestinal: No Musculoskeletal: No Endocrine: No HEENT: No Cancer: No Psychosocial: Yes Anxiety Integumentary: No Blood Disorders: No (HEP C+) (BOBBY GAUTHIER) Family Medical History No Pertinent Family Hx (BOBBY GAUTHIER) Physical Exam Vital Signs Vital Signs - First Documented 12/11/22 20:15 Temp 37.2 Pulse 101 Resp 28 B/P (MAP) 115/73 (87) Pulse Ox 99 O2 Delivery Room Air (YIMI,PARAM K DO) Vital Signs Capillary Refill : Less Than 3 Seconds (BOBBY GAUTHIER) Height, Weight, BMI Height: 5'10" Weight: 189lbs. oz. 85.083413cz; 24.00 BMI Method:Stated General Appearance: No Apparent Distress, WD/WN Eyes: Bilateral Eye Normal Inspection, Bilateral Eye PERRL, Bilateral Eye EOMI HEENT: PERRL/EOMI, TMs Normal, Normal ENT Inspection, Pharynx Normal Neck: Full Range of Motion, Normal Inspection, Non Tender, Supple Respiratory: Chest Non Tender, Lungs Clear, Normal Breath Sounds, No Accessory Muscle Use, No Respiratory Distress Cardiovascular: Regular Rate, Rhythm, No Edema, No Gallop, No JVD Gastrointestinal: Normal Bowel Sounds, No Organomegaly, No Pulsatile Mass, Non Tender Back: Normal Inspection, No CVA Tenderness, No Vertebral Tenderness Extremity: Normal Capillary Refill, Normal Inspection, Normal Range of Motion Neurologic/Psychiatric: Alert, Oriented x3, No Motor/Sensory Deficits, Normal Mood/Affect, district administrative assistant II-XII Norm as Tested Skin: Normal Color, Warm/Dry (BOBBY GAUTHIER) Progress/Results/Core Measures Suspected Sepsis SIRS Temperature: Pulse: 101 Respiratory Rate: 28 Laboratory Tests 12/11/22 20:27: White Blood Count 9.1 Blood Pressure 115 /73 Mean: 87 Laboratory Tests 12/11/22 20:27: Creatinine 1.30, Platelet Count 233, Total Bilirubin 0.5 (BOBBY GAUTHIER) Results/Orders Lab Results Laboratory Tests Test 12/11/22 20:27 Range/Units White Blood Count 9.1 4.3-11.0 10^3/uL Red Blood Count 4.78 4.30-5.52 10^6/uL Hemoglobin 14.6 13.3-17.7 g/dL Hematocrit 41 40-54 % Mean Corpuscular Volume 86 80-99 fL Mean Corpuscular Hemoglobin 31 25-34 pg Mean Corpuscular Hemoglobin Concent 35 32-36 g/dL Red Cell Distribution Width 12.1 10.0-14.5 % Platelet Count 233 130-400 10^3/uL Mean Platelet Volume 10.8 9.0-12.2 fL Immature Granulocyte % (Auto) 0 % Neutrophils (%) (Auto) 62 42-75 % Lymphocytes (%) (Auto) 25 12-44 % Monocytes (%) (Auto) 8 0-12 % Eosinophils (%) (Auto) 3 0-10 % Basophils (%) (Auto) 1 0-10 % Neutrophils # (Auto) 5.7 1.8-7.8 10^3/uL Lymphocytes # (Auto) 2.3 1.0-4.0 10^3/uL Monocytes # (Auto) 0.8 0.0-1.0 10^3/uL Eosinophils # (Auto) 0.3 0.0-0.3 10^3/uL Basophils # (Auto) 0.1 0.0-0.1 10^3/uL Immature Granulocyte # (Auto) 0.0 0.0-0.1 10^3/uL Urine Color YELLOW Urine Clarity CLEAR Urine pH 6.0 5-9 Urine Specific Pinon >=1.030 1.016-1.022 Urine Protein TRACE H NEGATIVE Urine Glucose (UA) NEGATIVE NEGATIVE Urine Ketones NEGATIVE NEGATIVE Urine Nitrite NEGATIVE NEGATIVE Urine Bilirubin NEGATIVE NEGATIVE Urine Urobilinogen 0.2 < = 1.0 MG/DL Urine Leukocyte Esterase NEGATIVE NEGATIVE Urine RBC (Auto) NEGATIVE NEGATIVE Urine RBC NONE /HPF Urine WBC 2-5 /HPF Urine Squamous Epithelial Cells NONE /HPF Urine Crystals NONE /LPF Urine Bacteria TRACE /HPF Urine Casts NONE /LPF Urine Mucus LARGE H /LPF Urine Other MOD SPERM H /HPF Urine Culture Indicated NO Sodium Level 136 135-145 MMOL/L Potassium Level 3.1 L 3.6-5.0 MMOL/L Chloride Level 102 98-107 MMOL/L Carbon Dioxide Level 18 L 21-32 MMOL/L Anion Gap 16 H 5-14 MMOL/L Blood Urea Nitrogen 17 7-18 MG/DL Creatinine 1.30 0.60-1.30 MG/DL Estimat Glomerular Filtration Rate 76 BUN/Creatinine Ratio 13 Glucose Level 184 H 70-105 MG/DL Calcium Level 9.0 8.5-10.1 MG/DL Corrected Calcium 9.1 8.5-10.1 MG/DL Magnesium Level 1.6 1.6-2.4 MG/DL Total Bilirubin 0.5 0.1-1.0 MG/DL Aspartate Amino Transf (AST/SGOT) 32 5-34 U/L Alanine Aminotransferase (ALT/SGPT) 57 H 0-55 U/L Alkaline Phosphatase 112 40-136 U/L Total Protein 6.7 6.4-8.2 GM/DL Albumin 3.9 3.2-4.5 GM/DL Urine Opiates Screen NEGATIVE NEGATIVE Urine Oxycodone Screen NEGATIVE NEGATIVE Urine Methadone Screen NEGATIVE NEGATIVE Urine Propoxyphene Screen NEGATIVE NEGATIVE Acetaminophen Level < 10 L 10-30 UG/ML Urine Barbiturates Screen NEGATIVE NEGATIVE Ur Tricyclic Antidepressants Screen NEGATIVE NEGATIVE Urine Phencyclidine Screen NEGATIVE NEGATIVE Urine Amphetamines Screen POSITIVE H NEGATIVE Urine Methamphetamines Screen POSITIVE H NEGATIVE Urine Benzodiazepines Screen NEGATIVE NEGATIVE Urine Cocaine Screen NEGATIVE NEGATIVE Urine Cannabinoids Screen POSITIVE H NEGATIVE Serum Alcohol < 10 <10 MG/DL (PARAM GELLER DO) My Orders Orders - PARAM GELLER DO Ekg Tracing (12/11/22 20:25) Alcohol (12/11/22 20:25) Cbc With Automated Diff (12/11/22 20:25) Comprehensive Metabolic Panel (12/11/22 20:25) Drug Screen Stat (Urine) (12/11/22 20:25) Magnesium (12/11/22 20:25) Ua Culture If Indicated (12/11/22 20:25) Acetaminophen (12/11/22 20:27) (PARAM GELLER DO) Vital Signs/I&O 12/11/22 12/11/22 20:15 21:36 Temp 37.2 36.9 Pulse 101 98 Resp 28 20 B/P (MAP) 115/73 (87) 121/74 Pulse Ox 99 98 O2 Delivery Room Air Room Air (PARAM GELLRE DO) Vital Signs/I&O Capillary Refill : Less Than 3 Seconds (BOBBY GAUTHIER) Blood Pressure Mean: 87 ECG Comment Sinus rhythm, ventricular premature complexes, borderline prolonged QT interval, 93 bpm, QRS duration 70 MS, QTc 486 MS. (BOBBY GAUTHIER) Departure Communication (PCP) Reviewed previous ER visits, H&P and lab testing. History of similar type sy mptoms. Symptoms started 20 minutes before arrival. He states his symptoms of his body feel numb from his head to toe has improved. Patient appears to be under the influence of methamphetamine which she has used this morning. History of frequent use. Patient without any visual changes, focal neural deficits. No strokelike symptoms. Due to current complaints general lab work EKG. EKG sinus rhythm without evidence of arrhythmia, ST elevation or pression. Ventricular premature complex. CBC grossly unremarkable. Chemistry showed potassium 3.1. Was given oral 20 mill equivalent of potassium. Anion gap 16, blood sugar 184. Drug screen positive for methamphetamine and marijuana. Urinalysis negative for infection. patient was slightly tachycardic. This is likely secondary to methamphetamine use. He is currently asymptomatic. No further lab work or imaging at this time. Recommend continue monitoring his lab work outpatient Heriberto with his primary care physician in the next 2 to 3 days. We will provide oral potassium for the next 2 to 3 days. Return precaution were discussed with patient. (BOBBY GAUTHIER) Impression Primary Impression: Methamphetamine abuse Additional Impression: Hypokalemia Disposition: 01 HOME, SELF-CARE Condition: Stable Departure-Patient Inst. Decision time for Depature: 21:32 (BOBBY GAUTHIER) Referrals: [facility],LOCAL PHYSICIAN (PCP) Primary Care Physician Patient Instructions: ALCOHOL AND SUBSTANCE ABUSE Scripts Potassium Chloride (Potassium Chloride) 20 Meq Tablet.er 20 MEQ PO DAILY for 4 Days, #4 TAB Prov: BOBBY GAUTHIER 12/11/22 ATTENDING PHYSICIAN NOTE: I WAS PHYSICALLY PRESENT ER PHYSICIAN, BUT I WAS NOT INVOLVED IN ANY DECISION MAKING OR ANY CARE OF THIS PATIENT, AND I AM NOT COLLABORATING PHYSICIAN. (PARAM GELLER DO) BOBBY GAUTHIER Dec 11, 2022 20:56 PARAM GELLER DO Dec 12, 2022 18:08
[2022-12-11 21:00] LABS: AMPHETAMINE SCREEN, URINE POSITIVE (NEGATIVE); BARBITURATE SCREEN URINE NEGATIVE (NEGATIVE); BENZODIAZEPINES SCREEN URINE NEGATIVE (NEGATIVE); CANNABINOID SCREEN, URINE POSITIVE (NEGATIVE); COCAINE SCREEN URINE NEGATIVE (NEGATIVE); OPIATE SCREEN URINE NEGATIVE (NEGATIVE)
[2022-12-11 21:01] LABS: METHADONE STAT NEGATIVE (NEGATIVE); OXYCODONE STAT NEGATIVE (NEGATIVE); PROPOXYPHENE STAT NEGATIVE (NEGATIVE); TRICYCLIC ANTIDEPRESSANTS SCRE NEGATIVE (NEGATIVE)
[2022-12-11 21:04] LABS: ALANINE AMINOTRANSFERASE 57 U/L (0-55); ALBUMIN 3.9 GM/DL (3.2-4.5); ALKALINE PHOSPHATASE 112 U/L (40-136); BILIRUBIN,TOTAL 0.5 MG/DL (0.1-1.0); BUN/CREATININE RATIO 13; CARBON DIOXIDE 18 MMOL/L (21-32); CHLORIDE 102 MMOL/L (98-107); GFR ESTIMATED 76; GLUCOSE 184 MG/DL (70-105); MAGNESIUM 1.6 MG/DL (1.6-2.4); POTASSIUM 3.1 MMOL/L (3.6-5.0); SODIUM 136 MMOL/L (135-145); TOTAL PROTEIN 6.7 GM/DL (6.4-8.2)
[2022-12-11 21:10] LABS: ACETAMINOPHEN < 10 UG/ML (10-30); BACTERIA,URINE TRACE /HPF
[2022-12-11 21:11] LABS: URINE OTHER MOD SPERM /HPF
[2022-12-11] MEDS ORDERED: KCL 20 MEQ TAB (K-DUR) PO ONE (21:30)
[2022-12-11] MEDS ORDERED: POTA-51 PO (21:32)
[2022-12-11 21:36] VITALS: BP 121/74
== END 2022-12-11 21:36 | disposition home or self-care (01) ==
LOC: EDUNIT# 20:03 → ER 20:04
DX: F15.10 Other stimulant abuse, uncomplicated (principal); E87.6 Hypokalemia; R00.0 Tachycardia, unspecified; F17.210 Nicotine dependence, cigarettes, uncomplicated; F17.290 Nicotine dependence, other tobacco product, uncomplicated; Z28.310 Unvaccinated for COVID-19
CPT/HCPCS: 80053; 80306; 81000; 83735; 85025; 93005; 99283; G0480 ×2; 36415; 80320; 80329

== ENCOUNTER 2023-05-07 16:14 | Emergency (ER) | payer SELFPAY ==
[~2023-05-07 16:14] MED LIST changes: +POTA-330 PO
[2023-05-07] MEDS ORDERED: NS IV 1000 ML 1,000 ML IV SCH ×2 (16:30→17:45)
[2023-05-07] MEDS ORDERED: OLANZapine 5 MG ODT TABLET PO ONE (16:30)
--- NOTE | 2023-05-07 16:32 | ED Psychosocial ---
General Chief Complaint: Substance Abuse Stated Complaint: OVERDOSE Nursing Triage Note: PT ARRIVES TO ER VIA EMS FROM HOME. 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 Source: patient, EMS Exam Limitations: no limitations, intoxication History of Present Illness Date Seen by Provider: May 07, 2023 Time Seen by Provider: 16:28 Initial Comments He is neither suicidal nor homicidal, patient was smoking methamphetamine at home. He smoked his third bottle and started feeling "weird "states he became short of breath he has tardive dyskinesia. He is somewhat hyperventilatory. He has a longstanding history of smoking meth states he does it every chance he gets. Understands that this is poor life choices and the reason why he does not feel well. Will obtain basic labs as he states he has not urinated in quite a few days. Will provide IV fluids and oral Zyprexa. Timing/Duration: just prior to arrival Severity: moderate Associated Symptoms: ingestion Allergies and Home Medications Allergies Coded Allergies: PETERANo Known Allergies (Unverified Allergy, Mild, 11/28/08) Patient Home Medication List Home Medication List Reviewed: Yes Amoxicillin/Potassium Clav (Augmentin 875-125 Tablet) 1 Each Tablet, 1 EACH PO BID Prescribed by: ABEBA THEODORE on 05/04/20 1547 Buspirone Hcl (Buspar) 10 Mg Tablet, 10 MG PO TID, (Reported) Entered as Reported by: MARIE VALERIO on 04/13/14 1559 Cyclobenzaprine HCl (Cyclobenzaprine HCl) 10 Mg Tablet, 10 MG PO Q8H PRN for SPASMS Prescribed by: STORMY RASHID on 06/15/152201 Naproxen (Naprosyn) 500 Mg Tablet, 500 MG PO BID Prescribed by: STORMY RASHID on 06/15/152201 Omeprazole (Omeprazole) 40 Mg Capsule.dr, 40 MG PO DAILY Prescribed by: SHRUTHI MCCOY on 04/18/20 121 Potassium Chloride (Potassium Chloride) 20 Meq Tablet.er, 20 MEQ PO DAILY Prescribed by: HELEN BARRERA on 12/11/222131 Prednisone (Prednisone) 20 Mg Tab, 40 MG PO DAILY Prescribed by: STORMY RASHID on 06/15/152201 Sucralfate (Carafate) 1 Gm Tablet, 1 GM PO QIDACHS Prescribed by: SHURTHI MCCOY on 04/18/20 1212 [seroquel] , (Reported) Entered as Reported by: MYRTLE SOLITARIO on 06/15/152108 Review of Systems Constitutional: no symptoms reported EENTM: no symptoms reported Respiratory: see HPI Cardiovascular: see HPI Gastrointestinal: no symptoms reported Genitourinary: see HPI Musculoskeletal: see HPI Skin: no symptoms reported Psychiatric/Neurological: See HPI All Other Systems Reviewed Negative Unless Noted: Yes Past Ivwmczq-Xebmib-Bxffra Hx Patient Social History Tobacco Use?: Yes Tobacco type used: Cigarettes Smoking Status: Current Everyday Smoker Substance use?: Yes Substance type: Methamphetamine, Marijuana Alcohol Use?: Yes Immunizations Up To Date First/Initial COVID19 Vaccinat: DENIES Second COVID19 Vaccination Chato: NONE Third COVID19 Vaccination Date: NONE Seasonal Allergies Seasonal Allergies: No Past Medical History Surgery/Hospitalization HX: HEP C +, [employer] Surgeries: Yes (jaw) Respiratory: No Cardiac: No Neurological: No Reproductive Disorders: No Gastrointestinal: No Musculoskeletal: No Endocrine: No HEENT: No Cancer: No Psychosocial: Yes Anxiety Integumentary: No Blood Disorders: No (HEP C+) Family Medical History No Pertinent Family Hx Physical Exam Vital Signs - First Documented 05/07/23 16:20 Temp 36.9 Pulse 119 Resp 22 B/P (MAP) 121/89 (100) Pulse Ox 99 O2 Delivery Room Air Capillary Refill : Height, Weight, BMI Height: 5'10" Weight: 189lbs. oz. 85.438973ly; 24.00 BMI Method:Stated General Appearance: mild distress (Anxious, hyperactive, tardive dyskinesia face cannot hold still) HEENT: PERRL/EOMI, other (Widespread dental caries) Neck: non-tender, full range of motion, supple, normal inspection Respiratory: chest non-tender, lungs clear, normal breath sounds, no respiratory distress, no accessory muscle use Cardiovascular: regular rate, rhythm, no edema Gastrointestinal: normal bowel sounds, non tender, soft Extremities: normal range of motion, non-tender, normal inspection, no pedal edema, no calf tenderness Neurologic/Psychiatric: managed services consultant II-XII nml as tested, no motor/sensory deficits, alert, oriented x 3 Appearance/Memory: disheveled, impaired insight (Due to drug abuse) Behavior/Eye Contact: cooperative, good eye contact Thoughts/Hallucinations: other (Actively tweaking) Skin: normal color, warm/dry Progress/Results/Core Measures Results/Orders Lab Results Laboratory Tests Test 05/07/23 16:35 Range/Units White Blood Count 13.4 H 4.3-11.0 10^3/uL Red Blood Count 5.09 4.30-5.52 10^6/uL Hemoglobin 15.4 13.3-17.7 g/dL Hematocrit 44 40-54 % Mean Corpuscular Volume 87 80-99 fL Mean Corpuscular Hemoglobin 30 25-34 pg Mean Corpuscular Hemoglobin Concent 35 32-36 g/dL Red Cell Distribution Width 12.2 10.0-14.5 % Platelet Count 246 130-400 10^3/uL Mean Platelet Volume 11.0 9.0-12.2 fL Immature Granulocyte % (Auto) 0 % Neutrophils (%) (Auto) 69 42-75 % Lymphocytes (%) (Auto) 19 12-44 % Monocytes (%) (Auto) 9 0-12 % Eosinophils (%) (Auto) 2 0-10 % Basophils (%) (Auto) 1 0-10 % Neutrophils # (Auto) 9.2 H 1.8-7.8 10^3/uL Lymphocytes # (Auto) 2.6 1.0-4.0 10^3/uL Monocytes # (Auto) 1.2 H 0.0-1.0 10^3/uL Eosinophils # (Auto) 0.3 0.0-0.3 10^3/uL Basophils # (Auto) 0.1 0.0-0.1 10^3/uL Immature Granulocyte # (Auto) 0.0 0.0-0.1 10^3/uL Sodium Level 140 135-145 MMOL/L Potassium Level 3.2 L 3.6-5.0 MMOL/L Chloride Level 104 98-107 MMOL/L Carbon Dioxide Level 26 21-32 MMOL/L Anion Gap 10 5-14 MMOL/L Blood Urea Nitrogen 13 7-18 MG/DL Creatinine 1.11 0.60-1.30 MG/DL Estimat Glomerular Filtration Rate 92 BUN/Creatinine Ratio 12 Glucose Level 121 H 70-105 MG/DL Calcium Level 10.4 H 8.5-10.1 MG/DL Corrected Calcium 10.1 8.5-10.1 MG/DL Total Bilirubin 0.8 0.1-1.0 MG/DL Aspartate Amino Transf (AST/SGOT) 35 H 5-34 U/L Alanine Aminotransferase (ALT/SGPT) 56 H 0-55 U/L Alkaline Phosphatase 100 40-136 U/L Total Creatine Kinase 513 H 30-200 U/L Total Protein 7.3 6.4-8.2 GM/DL Albumin 4.4 3.2-4.5 GM/DL My Orders Orders - DAMIAN SINGH DO Ed Iv/Invasive Line Start (05/07/23 16:25) Ns Iv 1000 Ml (Ns Iv 1000 Ml) (05/07/23 16:30) Ua Culture If Indicated (05/07/23 16:25) Cbc With Automated Diff (05/07/23 16:25) Comprehensive Metabolic Panel (05/07/23 16:25) Drug Screen Stat (Urine) (05/07/23 16:25) Olanzapine Orally Dissolve Tab (Olanzapi (05/07/23 16:30) Creatine Kinase (05/07/23 16:32) Medications Given in ED Current Medications Medications Dose Ordered Sig/Carson Route Start Time Stop Time Status Last Admin Dose Admin Olanzapine 5 mg ONCE ONCE PO 05/07/23 16:30 05/07/23 16:31 DC 05/07/23 16:42 5 MG Vital Signs/I&O 05/07/23 16:20 Temp 36.9 Pulse 119 Resp 22 B/P (MAP) 121/89 (100) Pulse Ox 99 O2 Delivery Room Air Blood Pressure Mean: 100 Progress Progress Note : Time: 16:31 Progress Note We will provide IV fluids. Ensure no rhabdomyolysis or any electrolyte abnormality. Will provide oral Zyprexa for symptom support. Contacted mother who states she can pick him up. Patient is not suicidal or homicidal. 1707 patient is cooperative. We will provide him a second liter of normal saline his creatinine is fine CK is somewhat elevated. When sure he is able to urinate. Tolerated Zyprexa well however still having symptoms therefore we will provide him IV Ativan as needed. Mother will come get him when we are ready to release him. Departure Impression Primary Impression: Methamphetamine abuse Disposition: 01 HOME, SELF-CARE Condition: Improved Departure-Patient Inst. Referrals: NO,LOCAL PHYSICIAN (PCP/Family) Primary Care Physician Patient Instructions: ALCOHOL AND SUBSTANCE ABUSE, Drug Misuse and Addiction (DC) Add. Discharge Instructions: Please stop using methamphetamine. All discharge instructions reviewed with patient and/or family. Voiced understanding. DAMIAN SINGH DO May 07, 2023 16:32
[2023-05-07 16:53] LABS: BASOPHILS # (AUTO) 0.1 10^3/uL (0.0-0.1); BASOPHILS % (AUTO) 1 % (0-10); EOSINOPHILS # (AUTO) 0.3 10^3/uL (0.0-0.3); EOSINOPHILS % (AUTO) 2 % (0-10); HEMATOCRIT 44 % (40-54); HEMOGLOBIN 15.4 g/dL (13.3-17.7); LYMPHOCYTES # (AUTO) 2.6 10^3/uL (1.0-4.0); LYMPHOCYTES % (AUTO) 19 % (12-44); MEAN CORPUSCULAR HEMOGLOBIN 30 pg (25-34); MEAN CORPUSCULAR HGB CONC 35 g/dL (32-36); MEAN CORPUSCULAR VOLUME 87 fL (80-99); MONOCYTES # (AUTO) 1.2 10^3/uL (0.0-1.0); MONOCYTES % (AUTO) 9 % (0-12); NEUTROPHILS # (AUTO) 9.2 10^3/uL (1.8-7.8); NEUTROPHILS % (AUTO) 69 % (42-75); PLATELET COUNT 246 10^3/uL (130-400); WHITE BLOOD COUNT 13.4 10^3/uL (4.3-11.0)
[2023-05-07 17:03] LABS: ALBUMIN 4.4 GM/DL (3.2-4.5); BILIRUBIN,TOTAL 0.8 MG/DL (0.1-1.0); CALCIUM 10.4 MG/DL (8.5-10.1); CREATININE SERUM 1.11 MG/DL (0.60-1.30); POTASSIUM 3.2 MMOL/L (3.6-5.0); TOTAL PROTEIN 7.3 GM/DL (6.4-8.2)
[2023-05-07 17:40] LABS: BACTERIA,URINE TRACE /HPF; BILIRUBIN,URINE 1+ (NEGATIVE); CLARITY,URINE CLEAR; COLOR,URINE YELLOW; GLUCOSE, URINE (UA) NEGATIVE (NEGATIVE); HYALINE CASTS, URINE 0-2 /LPF; KETONES,URINE NEGATIVE (NEGATIVE); LEUKOCYTE ESTERASE ,URINE NEGATIVE (NEGATIVE); NITRITE,URINE NEGATIVE (NEGATIVE); PH,URINE 5.5 (5-9); PROTEIN,URINE 1+ (NEGATIVE); SQUAMOUS EPITHELIAL CELL,UR RARE /HPF; WBC,URINE 0-2 /HPF
[2023-05-07 17:41] LABS: AMPHETAMINE SCREEN, URINE POSITIVE (NEGATIVE); BARBITURATE SCREEN URINE NEGATIVE (NEGATIVE); BENZODIAZEPINES SCREEN URINE NEGATIVE (NEGATIVE); CANNABINOID SCREEN, URINE POSITIVE (NEGATIVE); COCAINE SCREEN URINE NEGATIVE (NEGATIVE); METHADONE STAT NEGATIVE (NEGATIVE); OPIATE SCREEN URINE NEGATIVE (NEGATIVE); OXYCODONE STAT NEGATIVE (NEGATIVE); PROPOXYPHENE STAT NEGATIVE (NEGATIVE); TRICYCLIC ANTIDEPRESSANTS SCRE NEGATIVE (NEGATIVE)
[2023-05-07 18:27] VITALS: BP 109/87
== END 2023-05-07 18:27 | disposition home or self-care (01) ==
LOC: EDUNIT# 16:14 → ER 16:15
DX: F15.10 Other stimulant abuse, uncomplicated (principal); F17.210 Nicotine dependence, cigarettes, uncomplicated; Z28.310 Unvaccinated for COVID-19
CPT/HCPCS: 36415; 80053; 80306; 81000; 82550; 85025

== ENCOUNTER 2023-06-09 15:17 | Emergency (ER) | payer SELFPAY ==
[~2023-06-09] VITALS: Ht 177.8 cm; Wt 79.3 kg
--- NOTE | 2023-06-09 15:54 | ED EENT ---
History of Present Illness General Chief Complaint: Facial Problems Stated Complaint: LEFT SIDE FACIAL SWELLING Source: patient Exam Limitations: no limitations History of Present Illness Date Seen by Provider: Jun 09, 2023 Time Seen by Provider: 15:41 Initial Comments 32-year-old male presents to the ER with complaint of swelling to the left side of his face, states this started in the lower cheek around noon when he woke up today, and now has spread upwards towards his eye, also involves the left side of his nose. He does not have periorbital edema. He denies any dental pain. Denies eye pain. Denies fevers. Denies injury to his face. Allergies and Home Medications Allergies Coded Allergies: NKANo Known Allergies (Unverified Allergy, Mild, 11/28/08) Patient Home Medication List Home Medication List Reviewed: Yes Amoxicillin/Potassium Clav (Augmentin 875-125 Tablet) 1 Each Tablet, 1 EACH PO BID Prescribed by: ABEBA THEODORE on 05/04/20 1547 Buspirone Hcl (Buspar) 10 Mg Tablet, 10 MG PO TID, (Reported) Entered as Reported by: MARIE VALERIO on 04/13/14 1559 Clindamycin HCl (Clindamycin HCl) 150 Mg Capsule, 450 MG PO TID Prescribed by: Alma Nichole on 06/09/23 1635 Cyclobenzaprine HCl (Cyclobenzaprine HCl) 10 Mg Tablet, 10 MG PO Q8H PRN for SPASMS Prescribed by: STORMY RASHID on 06/15/152201 Naproxen (Naprosyn) 500 Mg Tablet, 500 MG PO BID Prescribed by: STORMY RASHID on 06/15/152201 Omeprazole (Omeprazole) 40 Mg Capsule.dr, 40 MG PO DAILY Prescribed by: SHRUTHI MCCOY on 04/18/20 121 Potassium Chloride (Potassium Chloride) 20 Meq Tablet.er, 20 MEQ PO DAILY Prescribed by: HELEN BARRERA on 12/11/222131 Prednisone (Prednisone) 20 Mg Tab, 40 MG PO DAILY Prescribed by: STORMY RASHID on 06/15/152201 Sucralfate (Carafate) 1 Gm Tablet, 1 GM PO QIDACHS Prescribed by: SHRUTHI MCCOY on 04/18/20 1212 [seroquel] , (Reported) Entered as Reported by: MYRTLE SOILTARIO on 06/15/152108 Review of Systems Review of Systems Constitutional: see HPI Past Dyvrlfr-Jlninp-Bikdro Hx Patient Social History Tobacco Use?: Yes Tobacco type used: Cigarettes Smoking Status: Current Everyday Smoker Substance use?: Yes Substance type: Methamphetamine, Marijuana Alcohol Use?: Yes Alcohol Frequency: Once in a while Immunizations Up To Date First/Initial COVID19 Vaccinat: DENIES Second COVID19 Vaccination Chato: DENIES Third COVID19 Vaccination Date: DENIES Seasonal Allergies Seasonal Allergies: No Past Medical History Surgery/Hospitalization HX: HEP C +, [employer] Surgeries: Yes (jaw) Respiratory: No Cardiac: No Neurological: No Reproductive Disorders: No Gastrointestinal: No Musculoskeletal: No Endocrine: No HEENT: No Cancer: No Psychosocial: Yes Anxiety Integumentary: No Blood Disorders: No (HEP C+) Family Medical History No Pertinent Family Hx Physical Exam Vital Signs Vital Signs - First Documented 06/09/23 15:31 Temp 36.3 Pulse 69 Resp 14 B/P (MAP) 111/75 (87) Pulse Ox 100 O2 Delivery Room Air Height, Weight, BMI Height: 5'10" Weight: 189lbs. oz. 85.905721qv; 24.00 BMI Method:Stated General Appearance: WD/WN, no apparent distress Nose: other (Swelling to left side of nose, and left cheek) Mouth/Throat: No dental tenderness; other (Port dentition, multiple missing teeth and dental caries) Neck: supple, normal inspection Cardiovascular: regular rate, rhythm Respiratory: lungs clear, normal breath sounds, no respiratory distress, no accessory muscle use Neurologic/Psychiatric: alert, normal mood/affect Skin: normal color, warm/dry Progress/Results/Core Measures Results/Orders My Orders Orders - ALMA PRIETO APRN Ct Facial Bones Wo (06/09/23 15:48) Vital Signs/I&O 06/09/23 06/09/23 15:31 16:40 Temp 36.3 Pulse 69 69 Resp 14 14 B/P (MAP) 111/75 (87) 111/75 Pulse Ox 100 100 O2 Delivery Room Air Room Air Progress Progress Note : Progress Note Patient seen and evaluated, resting comfortably in recliner, no acute distress. Based on exam and symptoms, CT of the facial bones ordered. 1632 CT shows severe and extensive dental caries and. Also disease, the left maxillary first premolar is likely the culprit for the facial swelling. No drainable abscess noted. Results discussed with patient. Will treat patient for dental abscess. Discharge instructions and return precautions provided. Diagnostic Imaging Diagonstic Imaging: CT Plain Films/CT/US/NM/MRI: facial bones Comments [facility], [place] NAME: KRISTY WHALEY [facility] REC#: [id number] PT STATUS: REG ER : 1990 PHYSICIAN: ALMA PRIETO APRN ADMIT DATE: 06/09/23/ER Signed Date of Exam:06/09/23 CT FACIAL BONES WO CT FACIAL BONES WO INDICATION: Facial swelling COMPARISON: 08/29/2014 TECHNIQUE: CT imaging of the face is performed without contrast. Automatic exposure controls were utilized to keep dose as low as reasonably achievable. FINDINGS: There is extensive and severe dental caries involving almost every tooth. There are also periapical lucencies involving the residual bilateral maxillary molars. There is associated subcutaneous reticulations and soft tissue swelling overlying the buccal surface of the left maxilla adjacent to the 1st premolar which is near completely eroded and has periodontal disease. There are mildly enlarged bilateral level 1 and level 2 cervical lymph nodes which are likely reactive in nature due to the dental disease. No mass at the base of tongue. No fracture within the mandible. Mild mucosal thickening in the left maxillary sinus. Other paranasal sinuses are clear. IMPRESSION: 1. Severe and extensive dental caries and periodontal disease. The left maxillary 1st premolar is likely the culprit for the associated overlying swelling in the buccal subcutaneous tissues. 2. By noncontrast exam there is no drainable abscess. Dictated by: Dictated on workstation # [id number] Dict: 06/09/23 1608 Trans: 06/09/23 1630 BANNER [id number] Interpreted by: LANI ARAUJO MD Electronically signed by: LANI ARAUJO MD 06/09/23 163 Departure Impression Primary Impression: Dental abscess Disposition: 01 HOME, SELF-CARE Condition: Stable Departure-Patient Inst. Decision time for Depature: 16:32 Referrals: NO,LOCAL PHYSICIAN (PCP/Family) Primary Care Physician Patient Instructions: Tooth Abscess ED Add. Discharge Instructions: Complete full course of antibiotic as prescribed. You need to follow-up with a dentist. Return for any new, concerning, or worsening symptoms. All discharge instructions reviewed with patient and/or family. Voiced understanding. Scripts Clindamycin HCl (Clindamycin HCl) 150 Mg Capsule 450 MG PO TID for 10 Days, #90 CAP 0 Refills Prov: ALMA PRIETO APRN 06/09/23 ALMA PRIETO APRN Jun 09, 2023 15:54
--- NOTE | 2023-06-09 16:16 | Diagnostic Imaging Report ---
CT FACIAL BONES WO INDICATION: Facial swelling COMPARISON: 08/29/2014 TECHNIQUE: CT imaging of the face is performed without contrast. Automatic exposure controls were utilized to keep dose as low as reasonably achievable. FINDINGS: There is extensive and severe dental caries involving almost every tooth. There are also periapical lucencies involving the residual bilateral maxillary molars. There is associated subcutaneous reticulations and soft tissue swelling overlying the buccal surface of the left maxilla adjacent to the 1st premolar which is near completely eroded and has periodontal disease. There are mildly enlarged bilateral level 1 and level 2 cervical lymph nodes which are likely reactive in nature due to the dental disease. No mass at the base of tongue. No fracture within the mandible. Mild mucosal thickening in the left maxillary sinus. Other paranasal sinuses are clear. IMPRESSION: 1. Severe and extensive dental caries and periodontal disease. The left maxillary 1st premolar is likely the culprit for the associated overlying swelling in the buccal subcutaneous tissues. 2. By noncontrast exam there is no drainable abscess. Dictated by: Dictated on workstation # [id number]
[2023-06-09] MEDS ORDERED: CLIN150C20 PO (16:35)
[2023-06-09 16:40] VITALS: BP 111/75
== END 2023-06-09 16:40 | disposition home or self-care (01) ==
LOC: EDUNIT# 15:17 → ER 15:19
DX: K04.7 Periapical abscess without sinus (principal); F17.210 Nicotine dependence, cigarettes, uncomplicated; Z28.310 Unvaccinated for COVID-19
CPT/HCPCS: 70486